=== PATIENT | female | born 1965 | race Caucasian/White ===

== ENCOUNTER → 2018-09-30 | Outpatient (CLI) | payer BC, SELFPAY ==
--- NOTE | 2018-09-30 16:17 | BI_ITS ---
MAMMOGRAPHY - BILATERAL SCREENING REASON FOR EXAM: Female, 53 years old. Routine annual screening examination. PERTINENT HISTORY: Non-contributory. TECHNIQUE: Digital bilateral breast leelee (3D mammographic acquisition) in the CC and MLO projections. 2-D mediolateral oblique (MLO) and craniocaudad (CC) views of both breasts were obtained. CAD: Full Field Digital Mammography with Computer Added Detection was performed. COMPARISON: Comparison is made with prior study dated June 09, 2015 and May 14, 2011. FINDINGS: Breast Composition: The breasts are extremely dense, which lowers the sensitivity of mammography. Questionable 8.1 mm nodular density with mild degree of spiculation seen in the deep lateral aspect of the right breast on the craniocaudad view. Correlation with ultrasound is recommended. No other significant abnormalities are identified. BI/SCREEN MAMM (CAD) W/LEELEE BILAT IMPRESSION: Questionable 8.1 mm nodular density in the deep lateral aspect of the right breast as described. Correlation with ultrasound is recommended. ASSESSMENT CATEGORY: BIRADS Category 0: Incomplete. Need additional imaging evaluation. A letter regarding these results will be sent to the patient by the facility within 30 days. Approximately 10% of breast cancers are not detected by mammography. A normal mammogram should not delay biopsy of a clinically suspicious abnormality. [id number] Electronically Signed: Conrado Ragsdale, at 8:33 EDT , Service support ,
== END | disposition home or self-care (01) ==
PROVIDERS: Family Provider Family Medicine; PCP Family Medicine; Referring Provider Obstetrics & Gynecology; Visit Provider Obstetrics & Gynecology
DX: Z12.31 Encounter for screening mammogram for malignant neoplasm of breast (principal)
CPT/HCPCS: 77063; 77067

== ENCOUNTER → 2018-10-01 | Outpatient (CLI) | payer BC, SELFPAY ==
--- NOTE | 2018-10-01 12:47 | US_ITS ---
STUDY: ULTRASOUND BREAST - RIGHT REASON FOR EXAM: Female, 53 years old. Abnormal screening mammogram. TECHNIQUE: Axial and longitudinal images of the RIGHT breast were performed with a high resolution ultrasound transducer. COMPARISON: Comparison is made with prior mammogram dated September 30, 2018. FINDINGS: RIGHT Breast: The mammographic abnormality corresponds to a 9 mm x 8 mm x 7 mm irregular hypoechoic nodule at the 7:00 position of the breast at 5 cm from the nipple. A biopsy is recommended. US/Breast Limited Unilateral IMPRESSION: 9 mm x 8 mm x 7 mm irregular hypoechoic nodule at the 7:00 position the breast at 5 cm from the nipple. A biopsy is recommended. ASSESSMENT CATEGORY: BIRADS Category 4: Suspicious - Biopsy Should Be Considered. A letter regarding these results will be sent to the patient by the facility within 30 days. Electronically Signed: Conrado Ragsdale, at 14:31 EDT , Service support ,
== END | disposition home or self-care (01) ==
LOC: OPUS 12:45
PROVIDERS: Family Provider Family Medicine; PCP Family Medicine; Visit Provider Obstetrics & Gynecology
DX: N63.10 Unspecified lump in the right breast, unspecified quadrant (principal)
CPT/HCPCS: 76642

== ENCOUNTER → 2018-10-11 | Outpatient (CLI) | payer BC, SELFPAY ==
--- NOTE | 2018-10-11 | IMM_PTH ---
PATIENT: HILDA VILLAVICENCIO LOC: [facility] U#:[id number] AGE/SX: 53/F ROOM: RE10/11/[address]: Dr. Koby Michelle MD : 1965 BED: DIS: 10/11/2018 SPEC #: [id number] RECD: 10/14/18 14:02 STATUS: CHIDI REQ #: [id number] DALE: 10/11/18 00:[address]: Koby Michelle DEPT: IMMUNOHISTOCHEMISTRY RECD BY: Leela Miranda ENTERED: 10/14/18 14:04 SP TYPE: IMMUNO OTHR DR: Dr. Cedric Valencia MD Tissues: Right breast, NOS Procedures: CALPONIN-1 (add) CK5-6 (add) CK8 (add) E-CAD (add) HER2 ANJU (add) KI-67 (add) P53 (add) KS (add) IN SITU HYBRIDIZATION P40 (add) ER (initial) PHYSICIAN & [address] [address] SPECIMEN INFORMATION: Tissue Source: Right breast needle core biopsy Clinical Info: Abnormal mammogram, right breast Specimen Number: [id number] CPT code: 29144, 32464 x6, 32996 x3, 15273 X2 METHODOLOGY: Deparaffinized sections of prefer/formalin-fixed tissue or PAP/DQ stained slides are incubated with monoclonal/polyclonal antibodies/oligonucleotide probes. Localization is made via biotin free immunoperoxidase method. Appropriate controls are performed and reacted as expected. Results on target cell population are indicated in the following table: RESULTS: ANTIBODY / CLONE RESULT P53 (DO-7) positive, 10% dim Ki-67 (30-9) positive, low CK8 (24zghgT77) positive CK5-6 (D5 & 1684) negative Calponin-1 (BF825I) negative P40 (BC28) negative E-Cad (ECH-6) positive MORPHOMETRIC ANALYSIS ER (clone 6F11) >95%, strong intensity KS (clone 16/1E2) >95%, strong intnsity Her-2Neu (clone CB11) 1 - 2+ The prognostic test for HER2 is performed on formalin-fixed paraffin embedded tissue. A 3+ (positive) staining pattern is defined as intense, homogeneous, complete, circumferential membranous staining in >10% of contiguous tumor cells. A similar weak (2+) staining pattern is interpreted as equivocal. JAROD follow-up testing is recommended for all equivocal cases. Positivity/negativity for ER/KS is reported if > or < 1% of the tumor cells are immuno- reactive, respectively. The ASCO/CAP criteria is used for scoring. Reference: Journal of Clinical Oncology, 2013; 31:0451-1952 & 2010; 16:5297-5945. Duration of fixation: 58.5 Hrs; Sample Adequate: Yes. These assays have not been validated on decalcified tissues. Results should be interpreted with caution given the likelihood of false negativity on decalcified specimens. These tests were developed and their performance characteristics determined by [facility]. They may not have been cleared or approved by the U.S. Food and Drug Administration. The FDA has determined that such clearance or approval is not necessary. INTERPRETATION: Right breast, core biopsy; Invasive ductal carcinoma, nuclear grade 2 Positive for estrogen receptors (favorable prognostic indicator). Positive for progesterone receptors (favorable prognostic indicator). Equivocal for overexpression of IAL6ptq. AM/cc 10/15/18 ADDENDUM ADDENDUM ADDENDUM ADDENDUM ADDENDUM ADDENDUM ADDENDUM ADDENDUM ADDENDUM ADDENDUM ADDENDUM ADDENDUM ADDENDUM ADDENDUM ADDENDUM ADDENDUM ADDENDUM ADDENDUM ADDENDUM ADDENDUM ADDENDUM 10/16/2018 12:25 ADDENDUM 10/16/2018 12:25 ADDENDUM 10/16/2018 12:25 ADDENDUM 10/16/2018 12:25 ADDENDUM 10/16/2018 12:25 IN SITU HYBRIDIZATION (JAROD) FOR HER2 Interpretation: Not Amplified HER2 : CEP-17 Ratio: 1.31 Average HER2 Signal: 2.3 Average CEP-17 Signal: 1.75 Number of Tumor Cells Scanned: 50 Interpretative Information: The INFORM HER2 Dual JAROD DNA Probe Cocktail assay is performed on formalin-fixed paraffin embedded tissue and determines HER2 gene status by detecting HER2 copies via silver in situ hybridization (SISH) and Chromosome 17 copies via chromogenic red in situ hybridization on tumor cells. A minimum of 20 cells representing > 10% of contiguous and homogeneous invasive tumor cells were analyzed. HER2 gene status is classified as Non-amplified (HER2/Chr17 ratio < 2.0) or Amplified (HER2/Chr17 ratio greater than or equal to 2.0). If the resulting HER2/Chr17 ratio falls within 1.8 - 2.2 (Borderline), retesting by FISH is recommended. Reference: Amy AC, Aaron STEVEN, Trell DG, et al: Recommendations for Human Epidermal Growth Factor Receptor 2 Testing in Breast Cancer: [place] [employer] On[employer] / [employer] [place] [employer] Clinical Practice Guideline Update. J Clin Oncol 31:0557-2133, 2013.
--- NOTE | 2018-10-11 09:15 | BRBX_PTH ---
PATIENT: HILDA VILLAVICENCIO LOC: [facility] #:[id number] AGE/SX: 53/F ROOM: RE10/11/[address]: Dr. Koby Michelle MD : 1965 BED: DIS: 10/11/2018 SPEC #: [id number] RECD: 10/11/18 11:12 STATUS: CHIDI REBethany #: [id number] DALE: 10/11/18 09:[address]: Koby Michelle DEPT: SURGICAL PATHOLOGY RECD BY: Travis Quinones ENTERED: 10/13/18 09:36 SP TYPE: BREAST BX OTHR DR: Dr. Cedric Valencia MD Tissues: Right breast, NOS Procedures: Surgery Specimen Level IV HEADER OPERATION: Ultrasound-guided needle core right breast biopsy PRE-OP DIAGNOSIS: Abnormal mammogram right breast TISSUE SUBMITTED: Right breast needle core biopsy ISCHEMIC TIME: <1 minute FIXATION TIME: 58.5 hours MICROSCOPIC DIAGNOSIS Right breast, ultrasound, needle core biopsy: Invasive ductal carcinoma with the following characteristics: Nuclear grade - 2. Maximal length - 7 mm. AM:taina 10/14/2018 COMMENT ER/NH/Uuq3gko studies are being performed on sections of tumor and the results from this study will be reported separately ([id number]). MICROSCOPIC DESCRIPTION Slides are reviewed. GROSS DESCRIPTION Received in fixative is one container labeled with the patient's name and designated right breast biopsy. The specimen consists of two elongated fragments of wagner soft tissue measuring 0.7 and 1 cm in length and 0.1 cm in diameter. The entire specimen is submitted in one cassette. / SJ:jose enrique 10/13/18 TC: 0 CPT: 07931
[2018-10-11 10:08] VITALS: BMI 19.1
== END | disposition home or self-care (01) ==
LOC: LABSPEC 11:33
PROVIDERS: Family Provider Family Medicine; PCP Family Medicine; Referring Provider Surgery; Visit Provider Surgery
DX: C50.911 Malignant neoplasm of unspecified site of right female breast (principal)
CPT/HCPCS: 88305; 88341; 88342; 88368

== ENCOUNTER 2018-10-24 13:59 | Observation (INO) | payer BC, SELFPAY ==
[2018-10-20 15:37] VITALS: BMI 19.1
--- NOTE | 2018-10-23 14:07 | EKG12_ITS ---
Test Reason : PREOP Blood Pressure : / mmHG Vent. Rate : 073 BPM Atrial Rate : 073 BPM P-R Int : 128 ms QRS Dur : 090 ms QT Int : 386 ms P-R-T Axes : 081 084 071 degrees QTc Int : 425 ms Normal sinus rhythm Possible Left atrial enlargement Borderline ECG Confirmed by SAMANTHA LANDA ([id number]), editor farm journal GREGORY GUERRA ([id number]) on 10/27/2018 1:35:00 PM Referred By: Samantha Michelle Confirmed By:SAMANTHA LANDA
[2018-10-23 15:17] LABS: Hematocrit 38.6 % (37-47); Mean Corp Hgb Conc 33.7 g/dL (32-36); Mean Corpuscular Hgb 32.3 pg (27.0-32.0); Mean Corpuscular Volume 95.8 fL (81-99); Mean Platelet Vol. 10.4 fl (6.2-12.0); Platelet Count 221 K/mm3 (150-450); RBC Distribution Width CV 12.3 % (11.6-14.6); RBC Distribution Width SD 43.5 fl (35.1-43.9); Red Blood Count 4.03 M/mm3 (4.2-5.4); White Blood Count 7.6 K/mm3 (4.4-11.0)
--- NOTE | 2018-10-23 19:09 | PCM.HP.BLA ---
History and Physical Date of Admission: 10/24/18 HISTORY OF PRESENT ILLNESS 53 year old woman presents for evaluation for breast reconstruction after a recent diagnosis of right breast cancer from a biopsy on 10/11/18. Pathology showed invasive ductal carcinoma. ER was positive. MD was positive. HER2/gurpreet was equivocal for overexpression. Her initial mammogram and ultrasound were done on 09/30/18 and suspicious for carcinoma. She denies any trauma to the breasts. She denies nipple drainage. She denies any skin dimpling or skin retraction. Since her diagnosis of right breast cancer, the patient is concerned that she will get cancer in the left breast and has developed cancer phobia. She also wants to discuss a prophylactic mastectomy on the left. PAST MEDICAL HISTORY Abnormal ultrasound of breast Abnormal mammogram Breast cancer PAST SURGICAL HISTORY right breast biopsy hysterectomy ALLERGIES tetracycline METALS MEDICATIONS NK FAMILY HISTORY Father - Heart disease, Myocardial infarction Mother - Respiratory disease Aunt - Respiratory disease SOCIAL HISTORY Smoking Status: Former smoker Smokeless tobacco user: other Electronic Cigarette Use: with nicotine second hand exposure: No quit status: quit date established alcohol intake: current alcohol intake frequency: a few times a month substance use type: does not use REVIEW OF SYSTEMS General - Denies fever, fatigue, and weight loss. Eyes - Denies cataracts and glaucoma. ENT - Denies nasal congestion and sore throat. Endocrine - Denies excessive thirst and urination. Has heat and cold intolerance. Has diagnosis of right breast cancer from biopsy on 10/11/18. Skin - Denies suspicious lesions and skin cancer. Musculoskeletal - Denies joint pain, joint stiffness, weakness of muscles and joints, back pain, and arthritis. Neuro - Denies headaches. Cardiovascular - Denies chest pain, fatigue, and shortness of breath with exertion. Psych - Denies anxiety and depression. Respiratory - Denies chronic cough and shortness of breath. Patient is a former smoker. Gastrointestinal - Denies nausea, vomiting, diarrhea, and constipation. Hematologic - Denies abnormal bruising and bleeding. Genitourinary - Denies hematuria and urinary frequency. PHYSICAL EXAMINATION General - Alert and Oriented. Her bra size is a B cup. HEENT - PERRL. EOMI. Throat is clear. Neck - Supple and nontender. No cervical adenopathy. Breasts - soft and symmetrical. No ptosis noted as the nipple is located just above the inframammary fold. Breast width is 13 cm bilaterally. No breast masses palpable. The breast cancer is located on the lower outer quadrant right breast. Some residual bruising noted after the biopsy. No axillary adenopathy. Lungs - Clear to auscultation. Heart - Regular rate and rhythm. Abdomen - Soft and nondistended. Some redundant skin and subcutaneous tissue noted between the umbilicus and pubic area. Extremities - FROM. No axillary adenopathy. Radial pulses are palpable. Neuro - CN II-XII grossly intact. Psych - Normal mood and affect. ASSESSMENT 1. Right breast cancer. 2. Cancer phobia left breast. 3. Planned acquired absence bilateral breasts. 4. Planned disproportion reconstructed breasts. 5. Estrogen receptor status positive. 6. Former smoker. PLAN Discussed various breast reconstruction options with the patient. These range from expanders and implants to using autogenous tissue to a combination of the two. She was told she may not need chemotherapy after surgery. She is leaning toward expanders and implants since the recovery is quicker. She wants to avoid additional scars elsewhere on the body. She would like to return to work in a timely fashion. Using autogenous tissue is a longer operation with more days in the hospital and has a longer recovery period. Initially, we can place saline tissue expanders into the mastectomy wounds. The expanders would be placed under the muscle and combined with placement of acellular dermal matrix graft for complete coverage of the expanders. Another option with implants is to place them on top of the muscle and then provide complete coverage of the implants with acellular dermal matrix graft. That way, the patient can wake up from surgery with a breast shape. It has a little more risk because of the tension of the implants on the fresh mastectomy skin flaps. But psychologically can be very beneficial so the benefits can outweigh the risks. Unless the patient is really interested in the pre-pectoral placement of the implants, it would be safer to proceed with initial placement of saline tissue expanders. Patient wants to minimize healing problems and minimize extra surgeries if possible, so she wants to proceed with the saline tissue expanders. She understands that she will wake up with out a breast shape since the expanders are not inflated initially, and she states she is ok with that initially because she knows it won't last very long until the expanders are removed with replacement cohesive gel implants. Because she has no ptosis preoperatively, will proceed with a skin sparing mastectomy. Will probable use a vertical incision which can be used as a mastopexy type incision at the time of the replacement cohesive gel implants. Any extra skin can be excised horizontally in the breast crease to complete the Tzone mastopexy incision. After the breast mounds have been created, can then discuss nipple reconstruction at that time which involves creation of a nipple flap and skin grafting the areola and/or intradermal tattooing. With this recent diagnosis of right breast cancer, the patient expressed concerns about developing breast cancer on the left at some point in the future and is interested in a prophylactic mastectomy to help minimize those fears. A prophylactic mastectomy on the left at the time of the right mastectomy and sentinel lymph node biopsy is a reasonable request. Can then proceed with bilateral reconstruction. Surgery would be under general anesthesia with a surgical observation overnight stay in the hospital. She will have drains in for several days and be maintained on antibiotics until the drains are removed. She will also wear an HECTOR for chest wall compression to minimize seroma formation. Will coordinate with Dr. Michelle's office for the timing of the surgery. Will try for the next 1-2 weeks. Patient was informed of the risks and complications of the procedure including alternatives to surgery. These were discussed with the patient personally. Patient voices understanding and wishes to proceed. Some of the risks and complications were included in a form from the [place] [employer].
[2018-10-24] VITALS (9 sets, daily range): BP systolic 93–111; BP diastolic 40–55; PULSE 57–87; RESP 14–70; TEMP 36.3–37.8; O2SAT 91–100; BMI 18.8
--- NOTE | 2018-10-24 | IMM_PTH ---
PATIENT: HILDA VILLAVICENCIO LOC: MS[facility] U#:[id number] AGE/SX: 53/F ROOM: IL302 RE10/24/[address]: Dr. Koby Michelle MD : 1965 BED: 1 DIS: 10/26/2018 SPEC #: [id number] RECD: 10/29/18 13:02 STATUS: CHIDI REQ #: [id number] DALE: 10/24/18 00:[address]: Koby Michelle DEPT: IMMUNOHISTOCHEMISTRY RECD BY: More Biggs ENTERED: 10/29/18 13:03 SP TYPE: IMMUNO OTHR DR: Dr. Cedric Valencia MD Tissues: A - Axillary lymph node, NOS Procedures: Pankeratin (add) CK7 (initial) PHYSICIAN & INSTITUTION [place] [address] SPECIMEN INFORMATION: Tissue Source: A - Right axillary sentinel lymph nodes, biopsy Clinical Info: Right breast cancer, ER positive Specimen Number: [id number] CPT code: 68881, 68632 METHODOLOGY: Deparaffinized sections of prefer/formalin-fixed tissue or PAP/DQ stained slides are incubated with monoclonal/polyclonal antibodies/oligonucleotide probes. Localization is made via biotin free immunoperoxidase method. Appropriate controls are performed and reacted as expected. Results on target cell population are indicated in the following table: RESULTS: ANTIBODY / CLONE RESULT Block A CK7 (OV-TL12/30) negative AE1-3 (AE1/AE3/PCK26) negative These tests were developed and their performance characteristics determined by [facility]. They may not have been cleared or approved by the U.S. Food and Drug Administration. The FDA has determined that such clearance or approval is not necessary. INTERPRETATION: A. Right axillary sentinel lymph nodes, biopsy: Two out of two lymph nodes negative for carcinoma. AM:jose enrique 10/30/18
--- NOTE | 2018-10-24 | AXNB_PTH ---
PATIENT: HILDA VILLAVICENCIO LOC: MS3 U#:[id number] AGE/SX: 53/F ROOM: [facility] RE10/24/[address]: Dr. Koby Michelle MD : 1965 BED: 1 DIS: 10/26/2018 SPEC #: [id number] RECD: 10/24/18 11:01 STATUS: CHIDI REQ #: [id number] DALE: 10/24/18 00:[address]: Koby Michelle DEPT: SURGICAL PATHOLOGY RECD BY: More Biggs ENTERED: 10/24/18 11:50 SP TYPE: AX NODE BX OTHR DR: Dr. Cedric Valencia MD Tissues: A - Axillary lymph node, NOS B - Skin, NOS C - Right breast, NOS D - Left breast, NOS Procedures: Frozen Section (charge) Surgery Specimen Level III Surgery Specimen Level V Surgery Specimen Level HEADER OPERATION: Breast mastectomy, sentinel lymph node biopsy PRE-OP DIAGNOSIS: Right breast cancer, ER positive TISSUE SUBMITTED: A - [place] lymph node sent for frozen at 1055, B - Skin biopsy right breast, C - Right breast, D - Left breast FROZEN SECTION DIAGNOSIS A. Right axillary sentinel lymph nodes, biopsy: Two out of two lymph nodes, negative for carcinoma. AM: 10/24/18 MICROSCOPIC DIAGNOSIS A. Right axillary sentinel lymph nodes, biopsy: Two out of two lymph nodes, negative for carcinoma. B. Skin of right breast, biopsy: No pathologic diagnosis. C. Right breast, mastectomy: Invasive ductal carcinoma. See cancer checklist below. D. Left breast, mastectomy: Fibrocystic change with associated microcalcifications. Focal intraductal hyperplasia without atypia. Microscopic intraductal papilloma. No evidence of malignancy. AM: 10/30/18 COMMENT INVASIVE BREAST CANCER SUMMARY: (Specimen C) Specimen: Total breast Procedure: Mastectomy Specimen integrity: Single intact specimen. Specimen size: 14 x 13 x 2.5 cm Specimen laterality: Right breast Invasive tumor size: 1 x 1 x 0.6 cm (from glass slides) Tumor focality: Single focus of invasive carcinoma Macroscopic and Microscopic extent of tumor: Skin: Free of carcinoma Nipple: Free of carcinoma Skeletal muscle: Not present Histologic type of invasive carcinoma: Invasive ductal carcinoma Histologic Grade ([place] grade): Glandular/tubular differentiation score: 3 Nuclear pleomorphism score: 2 Mitotic count score: 2 Overall grade: Grade 2 (total score of 7) Margins: Uninvolved by invasive carcinoma. Distance from closest (superior margin) is 0.7 cm. Lymph-Vascular invasion: Not identified Dermal lymph-vascular invasion: Not identified Ductal carcinoma in situ (DCIS): Estimated size (extent) of DCIS: 2 x 1 x 1 mm Number of blocks with DCIS: 4 Number of blocks examined: 12 Architectural pattern: Cribriform Nuclear grade: grade 2 Necrosis: Not present Lobular carcinoma in situ (LCIS): not present Lymph nodes: See specimen A Number of sentinel lymph nodes examined: 2 Total number of lymph nodes examined (sentinel and nonsentinel): 2 No evidence of macrometastases, micrometastases or isolated tumor cells. Microcalcifications: Present focally in benign breast parenchyma. Treatment effect: Unknown Additional pathologic findings: Fibrocystic change, microfibroadenoma and focal intraductal hyperplasia without atypia. Ancillary studies: Previously performed on same tumor ([id number] / [id number]). ER: >95% with strong intensity CO: >95% with strong intensity Her2 gurpreet: 1-2+ (IHC) Her2 by dual JAROD: Not amplified (1.31) PATHOLOGIC STAGE: pT1b N0(sn) Mx The above summary is in compliance with [employer] [place] [employer] (CAP) Cancer Protocols Checklist and [place] Joint Committee on Cancer (AJCC), Staging Manual, 8th Ed. Case has been reviewed in consultation with Dr. Fox who concurs with the above diagnosis. IDC:[id number] MICROSCOPIC DESCRIPTION Slides are reviewed. GROSS DESCRIPTION A - Received fresh for frozen section consultation labeled with the patient's name is a specimen designated right sentinel lymph node. The specimen consists of one irregular fragment of wagner-yellow fibrofatty tissue measuring 3.5 x 3.5 x 1 cm. Dissection reveals two rubbery nodules ranging in size from 1 to 1.5 cm. The nodules are submitted in their entirety for frozen section consultation in one block. / AM: 10/27/18 B - Received in fixative is one container labeled with the patient's name and designated skin biopsy right breast. The specimen consists of a single irregular fragment of wagner skin with attached yellow tissue measuring 0.7 x 0.5 x 0.2 cm. The specimen is totally submitted in one cassette. / AM: 10/27/18 C - Received in fixative is one container labeled with the patient's name and designated right breast. The specimen consists of a mastectomy measuring 14 x 13 x 2.5 cm and a skin fragment containing a centrally located nipple and areola measuring 7 x 2.6 cm. No cutaneous mass lesions are identified. The?specimen weighs 211 gm. The specimen is differentially inked as follows: superior - blue, inferior??green and posterior - black. Serial sections located in the upper outer quadrant of the breast is?a firm, wagner-white lesion that is spiculated and measures 1 x 0.9 x 0.8 cm and is located 0.5 cm from its?closest (superior) margin of excision. The remainder of the breast parenchyma is dense, white and firm in appearance. No other mass lesions are identified. Financial Advocate sections are submitted in 12?cassettes as follows: 1 & 2 - nipple and areola, 3 - perpendicular superior and inferior margins, 4??perpendicular medial margin, 5 - perpendicular lateral margin, 6 - perpendicular posterior margin, 8?&?9 - tumor, totally submitted, 10 - uninvolved parenchyma adjacent to tumor, 11 & 12 - uninvolved parenchyma away from tumor. Note, sections are submitted after additional fixation. / AM: 10/27/18 D - Received in fixative is one container labeled with the patient's name and designated left breast. The specimen consists of a mastectomy measuring 14 x 11.5 x 3 cm. The anterior surface contains a centrally located fragment of skin containing a grossly unremarkable nipple and areola. The skin fragment measures 6.5 x 2.5 cm. No cutaneous lesions are identified. The specimen is differentially inked as follows: superior - blue, inferior??green and posterior - black. The specimen weighs 220 gm. Serial sections reveal homogenous white, dense cut surfaces. No distinct mass lesion is identified. Financial Advocate sections are submitted as follows: 1 - nipple and areola, 2 - perpendicular superior and inferior margins, 3??perpendicular medial margin, 4 - perpendicular lateral margin, 5 - perpendicular posterior margin, 6-10 - textile machinery sales representative sections of breast parenchyma. Note, sections are submitted after additional fixation. / AM:jose enrique 10/27/18 TC:0 CPT: 24872 x2, 20869, 80401, 58502 ADDENDUM ADDENDUM ADDENDUM ADDENDUM ADDENDUM ADDENDUM ADDENDUM ADDENDUM 11/21/2018 10:14 ADDENDUM 11/21/2018 10:14 ADDENDUM 11/21/2018 10:14 ADDENDUM 11/21/2018 10:14 ADDENDUM 11/21/2018 10:14 An order for Oncotype testing was received from Dr. Gr. This necessitated case review, block and slide selection by pathologist at [facility]. Breast Cancer Recurrence Score = 10 Results of the complete Oncotype testing ([employer] report) are viewable in EMR under: Reports - Pathology - Lab Pathology Report, Scanned.
--- NOTE | 2018-10-24 08:00 | NM_ITS ---
PROCEDURE: NUCLEAR MEDICINE Injection [place] Node - RIGHT breast(s). REASON FOR EXAM: Female, 53 years old. Right breast cancer. TECHNIQUE: [place] node localization using radionuclide methods of the RIGHT breast(s) was performed following subcutaneous administration of 1.1 mCi of of sulfur colloid Tc-99m. FINDINGS: 1.1 mCi of technetium labeled sulfur colloid was injected in 4 equal aliquots in the lower outer aspect of the right breast. NM/Lymph Node Injection Only IMPRESSION: Subcutaneous injection of 1.1 mCi of technetium labeled sulfur colloid for sentinel node imaging. Electronically Signed: Conrado Ragsdale, at 8:17 EDT , Service support ,
[2018-10-24] MEDS: Cefazolin 2 GM in 0.9% Normal Saline 100 ML IV (09:49)
[2018-10-24] MEDS: Isosulfan Blue 1% 5 ML Vial OPERA.SITE (10:10)
--- NOTE | 2018-10-24 13:47 | PCM.OPRPT ---
Report of Operation Date of Procedure: 10/24/18 Pre-Operative Diagnosis: 1. Right breast cancer. 2. Cancer phobia left breast. 3. Planned acquired absence bilateral breasts. 4. Planned disproportion reconstructed breasts. 5. Estrogen receptor status positive. 6. Former smoker. Post-Operative Diagnosis: Same. Surgery/Procedure Performed:: 1. Prophylactic mastectomy left breast. 2. Immediate bilateral breast reconstruction with placement of submuscular saline tissue expanders (350 ml) and placement Alloderm Select Regenerative Tissue Matrix Graft (132 cm2 for each side). Description of Surgical Findings:: 53 year old woman presents for evaluation for breast reconstruction after a recent diagnosis of right breast cancer from a biopsy on 10/11/18. Pathology showed invasive ductal carcinoma. ER was positive. VT was positive. HER2/gurpreet was equivocal for overexpression. Her initial mammogram and ultrasound were done on 09/30/18 and suspicious for carcinoma. She denies any trauma to the breasts. She denies nipple drainage. She denies any skin dimpling or skin retraction. Since her diagnosis of right breast cancer, the patient is concerned that she will get cancer in the left breast and has developed cancer phobia. She also wants to discuss a prophylactic mastectomy on the left. Patient was informed of the risks and complications of the procedure including alternatives to surgery. These were discussed with the patient personally. Patient voices understanding and wishes to proceed. Some of the risks and complications were included in a form from the [place] [employer]. IV Fluids - 1700 ml. Urine Output - 200 ml. I used [employer] Artoura with Suture Tabs, Ultra High Profile Breast Tissue Cq Developer, Smooth, Integral Injection Dome, 350 ml, Left Breast. Reference Number - [id number]. Lot Number - [id number]. Serial Number - [id number]. I used [employer] Artoura with Suture Tabs, Ultra High Profile Breast Tissue Cq Developer, Smooth, Integral Injection Dome, 350 ml, Right Breast. Reference Number - [id number]. Lot Number - [id number]. Serial Number - [id number]. I used Alloderm Select Regenerative Tissue Matrix Graft, Contour Medium Perforated Thick (2.4 mm), 132 cm2, Left Breast. Reference Number - [id number] Lot Number - [id number]. Expiration - August,. I used Alloderm Select Regenerative Tissue Matrix Graft, Contour Medium Perforated Thick (2.4 mm), 132 cm2, Right Breast. Reference Number - [id number]. Lot Number - [id number]. Expiration - August,. I used Surgicel absorbable hemostat, (I used 2 vials, one in each breast). Reference Number - [id number]. Lot Number - [id number]. Expiration - February 15, 2020. web services professional: Eran Alvarez. Type of Anesthesia:: General Specimen's removed: Left breast tissue to Pathology. Drains: Cameron x3 (2 in right breast and one in left breast). Estimated Blood Loss (mL): 150 ml. Fluids Replaced: 1900 ml (IV Fluids 1700 ml, Urine Output 200 ml). Description of Procedure: Patient was seen in the preop area and was placed in the sitting position. Preop markings were made. I marked the sternal midline down toward the umbilicus. The inframammary folds were marked bilaterally. I andrzej oval markings around the nipple areolar complex extending vertically toward the inframammary fold. Will proceed with a vertical mastopexy type incision for the mastectomy which will be a better camouflage scar at the time of the replacement cohesive gel implants. She was placed in supine position and taken to OR and placed under general anesthesia. Her breasts were prepped and draped in the usual fashion. SCD's were placed for DVT prophylaxis. Perioperative antibiotics were given intravenously. A bradford catheter was then placed. Dr. Michelle proceeded with the right mastectomy. He will make a separate incision laterally to excise the biopsy site. Separate teams were used and separate instruments were used to avoid contaminating the noncancerous right side with possible cancer cells. I then proceeded with the prophylactic mastectomy on the left side. The vertical markings were infiltrated with xylocaine and epinephrine. I dissected the breast tissue off the breast skin flaps at the level of Jaida's fascia down to the chest wall muscular fascia. The breast tissue was then dissected off the chest wall muscular fascia. Dissection was carried superiorly to the clavicle and medially to the sternum and laterally to the anterior axillary line and inferiorly to the inframammary fold. The tissue was then sent to Pathology for analysis to rule out carcinoma. Hemostasis was obtained with electrocautery. The wound was irrigated with Irrisept and then with saline. I temporarily closed the incision with surgical clips. I will proceed with the placement of saline tissue expanders bilaterally after Dr. Michelle is finished with the sentinel lymph node biopsy. The preliminary Pathology report was negative for carcinoma in the lymph node. Sterile towels were placed over the mastectomy incisions as the drapes were removed. Then the sterile towels were removed as the patient was reprepped and redraped in the usual fashion. I first started on the left breast and then continued on the right breast. Incision was made at the level of the inferior aspect of the pectoralis muscle. A submuscular pocket was created. Some of the inferior and medial muscular fibers were excised to allow a larger submuscular pocket and to allow ease in insetting the Alloderm Regenerative Tissue Matrix Graft over the numerical control programmer. The wound was irrigated with saline. Hemostasis was obtained with electrocautery. A size 15 Cameron drain was placed through a separate stab incision laterally and secured to the skin with 3-0 Nylon interrupted suture. Based on the size of the submuscular pocket, I determined a size 350 ml saline tissue numerical control programmer from [employer] would be used. I used [employer] Artoura Ultra High Profile Smooth Breast Tissue Cq Developer. I removed the air from the numerical control programmer. After I removed the air, I instilled 50 ml of saline and tested to see if there were any leaks in the numerical control programmer. When it was noted there were no leaks, the saline was removed. The numerical control programmer was placed in Betadine and then placed in the submuscular position. The numerical control programmer was secured to the chest wall with 3-0 Vicryl interrupted sutures through the suture tabs. I then covered the inferior aspect of the numerical control programmer with Alloderm Regenerative Tissue Matrix Graft and secured the graft to the muscle with 3-0 Vicryl interrupted sutures and from the graft to the chest wall with 3-0 Vicryl interrupted sutures. I then sprayed Surgicel absorbable hemostat into the left breast wound pocket to help with hemostasis and to minimize seroma formation postoperatively. I used one vial. The horizontal breast incision was then approximated in multiple layers with 3-0 Monocryl interrupted sutures for the deep subcutaneous tissue. 3-0 Monocryl interrupted sutures were used for the deep dermis and subcutaneous tissue. The skin was approximated with 3-0 V-lock unidirectional barbed running subcuticular suture followed by Histoacryl skin tissue adhesive. Once the left side was closed, I then proceeded with the right breast reconstruction. Incision was made at the level of the inferior aspect of the pectoralis muscle. A submuscular pocket was created. Some of the inferior and medial muscular fibers were excised to allow a larger submuscular pocket and to allow ease in insetting the Alloderm Regenerative Tissue Matrix Graft over the numerical control programmer. The wound was irrigated with saline. Hemostasis was obtained with electrocautery. Two size 15 Cameron drains were placed through separate stab incisions laterally and secured to the skin with 3-0 Nylon interrupted sutures. One of the stab incisions was the biopsy site. Based on the size of the submuscular pocket, I determined a size 350 ml saline tissue numerical control programmer from [employer] would be used. I used [employer] Artoura Ultra High Profile Smooth Breast Tissue Cq Developer. I removed the air from the numerical control programmer. After I removed the air, I instilled 50 ml of saline and tested to see if there were any leaks in the numerical control programmer. When it was noted there were no leaks, the saline was removed. The numerical control programmer was placed in Betadine and then placed in the submuscular position. The wound was irrigated with Irrisept and then with saline. The numerical control programmer was secured to the chest wall with 3-0 Vicryl interrupted sutures through the suture tabs. I then covered the inferior aspect of the numerical control programmer with Alloderm Regenerative Tissue Matrix Graft and secured the graft to the muscle with 3-0 Vicryl interrupted sutures and from the graft to the chest wall with 3-0 Vicryl interrupted sutures. I then sprayed Surgicel absorbable hemostat into the left breast wound pocket to help with hemostasis and to minimize seroma formation postoperatively. I used one vial. The horizontal breast incision was then approximated in multiple layers with 3-0 Monocryl interrupted sutures for the deep subcutaneous tissue. 3-0 Monocryl interrupted sutures were used for the deep dermis and subcutaneous tissue. The skin was approximated with 3-0 V-lock unidirectional barbed running subcuticular suture followed by Histoacryl skin tissue adhesive. No vascular compromise was noted on both breast area skin flaps. Kerlix gauze was used for dressing followed by a compression HECTOR wrap. Patient tolerated the procedure well and was sent to PACU in satisfactory condition. She will be sent upstairs for postop care. She will be discharged when tolerating po analgesia and when she is more steady on her feet with ambulation. I anticipate 2-3 days. She will have her drains in for up to 14 days. She will be maintained on antibiotics until the drains are removed. She will keep her head elevated during the initial postop period and be on a lifting restriction. Grafts/Implants Used: [employer]william Artoura saline tissue numerical control programmer x2, Alloderm RTM graft x2. - Complications None. - Admit VTE Documentation VTE Present on Admission: No VTE Mechan Device Prophylaxis: SCD's VTE Pharm Prophylaxis ordered?: Yes Code Visit Surgery Charges CPT - 55023 ICD-10 - C50.911, F40.298, Z90.13, N65.1, Z17.0, Z87.891 26584 C50.911, F40.298, Z90.13, N65.1, Z17.0, Z87.891 [id number] C50.911, F40.298, Z90.13, N65.1, Z17.0, Z87.891 25626 C50.911, F40.298, Z90.13, N65.1, Z17.0, Z87.891 [id number] C50.911, F40.298, Z90.13, N65.1, Z17.0, Z87.891
[2018-10-24] MEDS: Ondansetron 4 MG/2 ML Vial IV (15:59)
[2018-10-24] MEDS: Cefazolin 1 GM/50 ML BAG IV ×2 (16:48→21:23)
[2018-10-24] MEDS: oxyCODONE 5 MG Tablet 10 MG PO ×2 (16:53→21:23)
[2018-10-24] MEDS: proMETHazine 25 MG Tablet PO (17:43)
[2018-10-24] MEDS: Docusate Sodium 100 MG Capsule PO (21:26)
[2018-10-25] MEDS: 0.9% NaCl Peripheral Flush Adult/Peds IV (00:35)
[2018-10-25] MEDS: HYDROmorphone 1 MG/ML Syringe IV (00:35)
[2018-10-25 00:37] VITALS: BP 105/55; PULSE 73; RESP 16; TEMP 36.9; O2SAT 97
[2018-10-25] MEDS: Lactated Ringers 1,000 ML 60 ML IV ×2 (05:52→22:40)
[2018-10-25] MEDS: oxyCODONE 5 MG Tablet 10 MG PO ×4 (05:52→19:55)
[2018-10-25] MEDS: Cefazolin 1 GM/50 ML BAG IV ×3 (05:53→22:40)
[2018-10-25 06:02] VITALS: BP 88/47; PULSE 77; RESP 18; TEMP 36.9; O2SAT 97
[2018-10-25 06:41] LABS: Hematocrit 32.2 % (37-47); Hemoglobin 10.5 g/dL (12.0-15.0); Mean Corp Hgb Conc 32.6 g/dL (32-36); Mean Corpuscular Hgb 32.4 pg (27.0-32.0); Mean Corpuscular Volume 99.4 fL (81-99); Platelet Count 183 K/mm3 (150-450); RBC Distribution Width CV 12.2 % (11.6-14.6); RBC Distribution Width SD 45.1 fl (35.1-43.9); Red Blood Count 3.24 M/mm3 (4.2-5.4); White Blood Count 10.1 K/mm3 (4.4-11.0)
[2018-10-25 07:01] LABS: Anion Gap 5 (5-15); BUN 6 mg/dL (7-18); BUN/Creat Ratio 7.5 RATIO (10-20); Calcium,Total 7.9 mg/dL (8.5-10.1); Chloride 107 mmol/L (98-107); EST Glomerular Filtration Rate 80 mL/min (>60); Est Glom Filt Rate - Afr Amer 97 mL/min (>60); Estimated Creatinine Clearance 64.22 ml/min; Glucose 124 mg/dL (74-106); Potassium 3.9 mmol/L (3.5-5.1); Prealbumin 14.2 mg/dL (20.0-40.0); Sodium Level 141 mmol/L (136-145)
[2018-10-25 07:07] VITALS: BP 91/34; PULSE 80; RESP 18; TEMP 36.8; O2SAT 97
[2018-10-25] MEDS: Enoxaparin 40 MG/0.4 ML Syringe SC (07:11)
[2018-10-25] MEDS: Docusate Sodium 100 MG Capsule PO ×2 (08:51→22:39)
--- NOTE | 2018-10-25 09:37 | PCM.OPRPT ---
Problem List (1) Breast cancer, right Status: Acute Qualifiers: Breast location: lower outer quadrant of breast Estrogen receptor status: positive Patient sex: female Qualified Code(s): C50.511 - Malignant neoplasm of lower-outer quadrant of right female breast; Z17.0 - Estrogen receptor positive status [ER+] Report of Operation Date of Procedure: 10/24/18 Pre-Operative Diagnosis: Right-sided breast cancer Post-Operative Diagnosis: Same Surgery/Procedure Performed:: 1. Injection of 5 cc of Lymphazurin blue. 2. Right-sided mastectomy. 3. Right-sided sentinel lymph node biopsy Type of Anesthesia:: General Specimen's removed: 1. Right breast. 2. [place] lymph node biopsies Description of Procedure: She was brought into the operating room. Placed in the supine position. Under excellent general trach intubation I injected 4 cc of Lymphazurin blue circumareolar Tavares on the right nipple area. Both breasts were then sterilely prepped and draped in usual fashion. An inverse teardrop incision was made on the breast. Flaps were created with the use of a plasma blade I started medially towards the sternum and inferiorly towards the rectus abdominis muscle and then went superiorly I rotated the breast off of the pectoralis major muscle using the plasma blade I had excellent hemostasis I transected the breast just lateral to the lateral edge of the pectoralis minor muscle for permanent sectioning. I entered the clavipectoral fascia and identified a blue lymph node it did have a super high count on the neoprobe I removed it I sent it came back as to lymph node. No other blue lymph nodes were identified. Neoprobe activity was minimal. The sentinel lymph nodes came back his 2 benign lymph nodes with no signs of metastatic disease. Irrigated out the wound good hemostasis was noted. Once this was completed I turned my attention to the previous biopsy site. I ellipsed this out and sent it to pathology for permanent sectioning Dr. Lewis will be dictating the rest of the closure. - Admit VTE Documentation VTE Present on Admission: No VTE Mechan Device Prophylaxis: SCD's VTE Pharm Prophylaxis ordered?: No Reason prophylaxis not ordered:: Treatment Not Indicated
--- NOTE | 2018-10-25 09:48 | HP.PCM_ITS ---
Problem List (1) Breast cancer, right Status: Acute Qualifiers: Breast location: lower outer quadrant of breast Estrogen receptor status: positive Patient sex: female Qualified Code(s): C50.511 - Malignant neoplasm of lower-outer quadrant of right female breast; Z17.0 - Estrogen receptor positive status [ER+] History and Physical Date of Admission: 10/24/18 [facility] [address] [place] [address]. [address] [place] [address] OFFICE VISIT Date of Service: 10/17/18 MR#: [id number] Acct: [id number] Name: HILDA VILLAVICENCIO Rep #: [id number] : [id number] Provider: Koby white MD Age/Sex: 53/F Location: [facility] Status: Signed Intake Vital Signs 10/17/18 Blood Pressure 100/66 10/17/18 Blood Pressure Location Rt brachial 10/17/18 Respiratory Rate 16 10/17/18 Pulse Rate 61 10/17/18 Pulse Ox 99 10/17/18 Body Mass Index (BMI) 19.1 Intake Visit Reasons: Rt Breast NC Bx Chief Complaint: discuss surgery Family And Marriage Counsellor Required: No Is patient in pain?: No Allergies tetracycline Adverse Reaction (Mild, Verified 10/17/18 08:02) GI Upset Medications NK 10/09/18 [History Confirmed 10/17/18] Is last menstrual period known: No Post menopausal: No Patient : No PFSH Medical History Abnormal ultrasound of breast (Acute) Abnormal mammogram (Acute) Breast cancer (Acute ~09/2018) Surgical History Hx of right breast biopsy (Acute) Hx of hysterectomy (Acute) Family History Father Heart disease Myocardial infarction Social History (Updated 10/17/18 @ 08:52 by Koby Michelle MD) Smokeless tobacco user: other Electronic Cigarette Use: with nicotine second hand exposure: No quit status: quit date established alcohol intake: current alcohol intake frequency: a few times a month substance use type: does not use caffeine: Yes what type of physical activity do you participate in: none frequency: does not exercise seatbelt use: always HPI HPI HPI: HILDA VILLAVICENCIO, is a 53 F who presents to the office today for HPI HPI Surgical H&P: Yes HPI: HILDA VILLAVICENCIO is a 53 F who presents to the office today for follow-up from an ultrasound-guided needle core biopsy. Patient underwent a right-sided ultrasound-guided needle core biopsy on the right side on 10/11/2018. This came back as an invasive ductal carcinoma nuclear grade 2 it was estrogen and progesterone strongly positive and HER-2/gurpreet 1-2+. I have sat down with the patient and discussed both conservative and mastectomy options with her and she is interested in having a bilateral mastectomy. ROS General General: No weight change, appetite, fatigue, colon cancer, breast cancer or weakness HEENT HEENT: No difficulty swallowing, eye injury, eye surgery, swollen glands or hoarseness Endo Endocrine: No thyroid disease, diabetes mellitus, thyroid cancer, Hair loss, heat intolerance or cold intolerance Skin Skin: No rash or changing moles Breast Breast: Yes right breast lump, abnormal mammogram and abnormal US; no left breast lump, nipple discharge, breast pain or breast enlargement Musc Musculoskeletal: No back problems, arthritis, rheumatoid arthritis, gout or joint pain Cardio Cardiovascular: No murmur, pacemaker, heart disease, atrial fibrillation, high blood pressure, heart attack, heart stent, palpitations, shortness of breat with exertion or chest pain Psych Psychiatric: No depression, anxiety or hearing voices Resp Respiratory: No shortness of breath, No sleep apnea, No cough, No COPD, No asthma, No emphysema, No wheezing Gastro Gastrointestinal: No abdominal pain, No nausea or vomiting, No diarrhea, No constipation, No blood in stool, No acid reflux, No hemorrhoids, No ulcers, No gallbladder problem, No black,tarry stools Julio César Hematologic: No blood thinners, No blood disorders, No bleeding, No anemia, No blood clots Neuro Neurologic: No weakness Exam Const General: no acute distress, well developed, well hydrated Orientation: oriented to person, oriented to place, oriented to time [facility] Head: normocephalic, atraumatic Ears: external ears normal Mouth: moist mucous membranes Eyes Sclera: sclerae normal Pupils: normal by confrontation Neck Neck: no lymphadenopathy noted Neck mass: No Thyroid: thyroid normal, symmetrical Chest Chest palpation & inspection: normal inspection of the chest Breast inspection: normal inspection of the breasts Breast Palpation: No nipple discharge Other: Palpation of the right breast reveals small amount of bruising in the lower aspect of the breast.. Palpation of the left breast reveals no palpable masses. Axillary exam demonstrates no suspicious masses in either the left or right axilla. Resp Effort & Inspection: normal respiratory effort Auscultation: clear to auscultation bilaterally Percussion: percussion normal Cardio Rate: regular rate Rhythm: regular rhythm Heart Sounds: no murmurs GI Palpation: soft, no hepatosplenomegaly, no masses, nontender Rectal Exam: other Other: Rectal exam deferred. Extrem General: normal to inspection, no clubbing, cyanosis or edema Assessment & Plan Problems 1. Malignant neoplasm of lower-outer quadrant of right breast of female, estrogen receptor positive C50.511; Z17.0 Plan I have given the patient options for initial surgical treatment. Options are the following: lumpectomy followed by radiation therapy vs. mastectomy vs. mastectomy followed by immediate reconstruction. I have described the procedures to the patient. I have described the advantages and disadvantages of the options, but I have told the patient that among the options, the survival rate for breast cancer is the same. I have told the patient that with all the surgeries that a sentinel lymph node biopsy is required. I have described the procedure of sentinel lymph node biopsy to the patient. I have told the patient that if the biopsy is positive for metastatic disease, then a full axillary lymph node dissection is required. I have told the patient that adjuvant chemotherapy will be required should the lymph nodes reveal metastatic disease. Also, a full lymph node dissection will increase the risk for lymphedema, especially if there are 4 or more lymph nodes positive for metastatic disease and radiation to the axilla is also required. I have told the patient the risks of surgery, including but not limited to: infection, bleeding, scar tissue, seroma and persistent seroma, lymph leak, injury to any blood vessels, injury to any nerves (particularly the long thoracic, the thoracodorsal, and the second intercostal brachial and the resultant sequelae), lymphedema, cosmetic deformity, dysesthesias, wound infections, further surgery (especially if margins are not clear), complications of anesthesia, etc. the patient understands. The patient will think about the options and discuss it further with the family. The patient will contact me in the next few days when she decides what the patient wishes to do. I have answered all the patient?s questions at this point to her satisfaction and she has no further questions. Patient is opting for a right-sided mastectomy with sentinel lymph node biopsy. In addition she would also like to have a prophylactic left-sided mastectomy. My plan is to have the patient see our plastic surgeon for evaluation. Orders Referrals: Plastic surgery C50.919 Coding Level of Care Code Off vis,new,level 3 Diagnoses Malignant neoplasm of lower-outer quadrant of right breast of female, estrogen receptor positive C50.511; Z17.0 ??Estrogen receptor status: positive 10/17/18 0852 <Electronically signed by Koby patel MD> Date _ Koby Michelle MD [facility] Signature: Date (if applicable) CC: Cedric Valencia MD; John Jha MD ~ I have re-examined the patient. There are no clinical changes since date of exam.
--- NOTE | 2018-10-25 09:49 | PCM.PN.SRG ---
Subjective: Patient is sore in the sternal area. She is up and awake. - Physical Exam Vital Signs Temp Pulse Resp BP Pulse Ox 98.2 F 80 18 91/34 L 97 10/25/18 07:07 10/25/18 07:07 10/25/18 07:07 10/25/18 07:07 10/25/18 07:07 Oxygen Delivery Method Room Air Weight: 107 lb 12.897 oz Body Mass Index (BMI) 18.8 Intake and Output for Last 24 Hours 10/23/18 10/24/18 10/25/18 23:59 23:59 23:59 Intake Total 1207 / 1207 Output Total 430 / 430 1640 / 1640 Balance -430 / -430 -433 / -433 Laboratory Tests Past 24 Hrs 10/25/18 10/25/18 06:18 06:18 WBC 10.1 RBC 3.24 L Hgb 10.5 L Hct 32.2 L MCV 99.4 H MCH 32.4 H MCHC 32.6 RDW Std Deviation 45.1 H RDW Coeff of Bernarda 12.2 Plt Count 183 MPV 10.0 Sodium 141 Potassium 3.9 Chloride 107 Carbon Dioxide 29.0 Anion Gap 5 BUN 6 L Creatinine 0.80 Estim Creat Clear Calc 64.22 Est GFR (MDRD) Af Amer 97 Est GFR (MDRD) Non-Af 80 BUN/Creatinine Ratio 7.5 L Glucose 124 H Calcium 7.9 L Prealbumin 14.2 L Medical Necessity - Tobacco Use Smoking Status: Former smoker Tobacco Use: Non-smoker Assessment/Plan All Active Problems (Last Updated 10/20/18 @ 15:11 by Marta Arango) Disproportion of reconstructed breast (Acute) Acquired absence of bilateral breasts and nipples (Acute) Breast cancer, right (Acute) Hx of right breast biopsy (Acute) Hx of hysterectomy (Acute) Abnormal ultrasound of breast (Acute) Abnormal mammogram (Acute) I discussed with her the fact that the sentinel lymph node came back is negative. We will now have to wait for the final path report to come back. All other care per .
[2018-10-25 13:45] VITALS: BP 100/48; PULSE 84; RESP 18; TEMP 38.1; O2SAT 96
[2018-10-25 15:25] VITALS: TEMP 36.8
--- NOTE | 2018-10-25 15:45 | PCM.PN.SRG ---
Subjective: Postop #1 Patient has some incisional pain. She is a little unsteady on her feet with ambulation. - Physical Exam General: Alert, Oriented x3 HEENT: PERRLA, EOMI Oral: Moist Mucosa Neck: Supple Abdomen: Soft, Non-Distended Skin: Incision - Breast incisions are dry and intact. No clinical evidence of hematoma. No vascular compromise noted on the breast skin flaps. Neurological: Cranial nerves II-XII grossly intact Psych/Mental Status: Normal Affect, Appropriate Vital Signs Temp Pulse Resp BP Pulse Ox 98.3 F 84 18 100/48 L 96 10/25/18 15:25 10/25/18 13:45 10/25/18 13:45 10/25/18 13:45 10/25/18 13:45 Oxygen Delivery Method Room Air Weight: 107 lb 12.897 oz Body Mass Index (BMI) 18.8 Intake and Output for Last 24 Hours 10/23/18 10/24/18 10/25/18 23:59 23:59 23:59 Intake Total 1918 / 1918 Output Total 430 / 430 2300 / 2300 Balance -430 / -430 -382 / -382 Drainage 100 ml yesterday, 250 ml today. Laboratory Tests Past 24 Hrs 10/25/18 10/25/18 06:18 06:18 WBC 10.1 RBC 3.24 L Hgb 10.5 L Hct 32.2 L MCV 99.4 H MCH 32.4 H MCHC 32.6 RDW Std Deviation 45.1 H RDW Coeff of Bernarda 12.2 Plt Count 183 MPV 10.0 Sodium 141 Potassium 3.9 Chloride 107 Carbon Dioxide 29.0 Anion Gap 5 BUN 6 L Creatinine 0.80 Estim Creat Clear Calc 64.22 Est GFR (MDRD) Af Amer 97 Est GFR (MDRD) Non-Af 80 BUN/Creatinine Ratio 7.5 L Glucose 124 H Calcium 7.9 L Prealbumin 14.2 L Medical Necessity - Tobacco Use Smoking Status: Former smoker Tobacco Use: Non-smoker Assessment/Plan All Active Problems (Last Updated 10/20/18 @ 15:11 by Marta Arango) Disproportion of reconstructed breast (Acute) Acquired absence of bilateral breasts and nipples (Acute) Breast cancer, right (Acute) Hx of right breast biopsy (Acute) Hx of hysterectomy (Acute) Abnormal ultrasound of breast (Acute) Abnormal mammogram (Acute) 1. Right breast cancer. 2. Cancer phobia left breast. 3. Planned acquired absence bilateral breasts. 4. Planned disproportion reconstructed breasts. 5. Estrogen receptor status positive. 6. Former smoker. 7. Anemia of chronic disease, acute on chronic. Breast incisions are dry and intact. No clinical evidence of hematoma. No vascular compromise noted on her breast skin flaps. She complains of incisional pain. Will wean to po analgesia in anticipate for discharge tomorrow. She is a little unsteady on her feet with ambulation. Will discharge when she is more steady on her feet with ambulation. Prealbumin was 14.2. Encourage nutritional supplementation with protein to help the healing process. Continue IV Ancef until discharge. Will discharge on Cefadroxil until the drains are removed. Hgb was 10.5. Preop it was 13.0. She has anemia of chronic disease, acute on chronic. She had some operative blood loss of 150 ml. She also has some IV dilution from the surgery. Had 1700 ml of fluid intraop. Will recheck a Hgb tomorrow. Will send home on Iron supplementation. Keep head elevated. Continue vilma wrap for chest wall compression. Continue lifting restriction.
[2018-10-25 20:12] VITALS: BP 94/50; PULSE 69; RESP 16; TEMP 37.5; O2SAT 96
[2018-10-26 02:30] VITALS: BP 98/52; PULSE 81; RESP 18; TEMP 37.4; O2SAT 94
[2018-10-26] MEDS: oxyCODONE 5 MG Tablet 10 MG PO ×3 (02:43→13:08)
[2018-10-26 04:29] LABS: Hematocrit 28.7 % (37-47); Hemoglobin 9.5 g/dL (12.0-15.0); Mean Corp Hgb Conc 33.1 g/dL (32-36); Mean Corpuscular Hgb 32.6 pg (27.0-32.0); Mean Corpuscular Volume 98.6 fL (81-99); Mean Platelet Vol. 10.2 fl (6.2-12.0); Platelet Count 168 K/mm3 (150-450); RBC Distribution Width CV 12.5 % (11.6-14.6); Red Blood Count 2.91 M/mm3 (4.2-5.4); White Blood Count 8.9 K/mm3 (4.4-11.0)
[2018-10-26] MEDS: Cefazolin 1 GM/50 ML BAG IV ×2 (05:44→13:11)
[2018-10-26] MEDS: Enoxaparin 40 MG/0.4 ML Syringe SC (05:44)
[2018-10-26] MEDS: proMETHazine 25 MG Tablet PO (06:36)
[2018-10-26 08:16] VITALS: BP 94/50; PULSE 75; RESP 18; TEMP 37.4; O2SAT 95
[2018-10-26] MEDS: Docusate Sodium 100 MG Capsule PO (08:27)
[2018-10-26] MEDS: Iron Polysaccharide Complex 150 MG CAPSULE PO (08:30)
--- NOTE | 2018-10-26 14:38 | PCM.PN.SRG ---
Subjective: Postop #2 Patient is resting comfortably. - Physical Exam General: Alert, Oriented x3 HEENT: PERRLA, EOMI Oral: Moist Mucosa Neck: Supple Lungs: Clear to auscultation Abdomen: Soft, Non-Distended Skin: Incision - Breast incisions are dry and intact. No clinical evidence of hematoma. No vascular compromise noted on the breast skin flaps. Neurological: Cranial nerves II-XII grossly intact Psych/Mental Status: Normal Affect, Appropriate Vital Signs Temp Pulse Resp BP Pulse Ox 99.4 F H 75 18 94/50 L 95 10/26/18 08:16 10/26/18 08:16 10/26/18 08:16 10/26/18 08:16 10/26/18 08:16 Oxygen Delivery Method Room Air Weight: 107 lb 12.897 oz Body Mass Index (BMI) 18.8 Intake and Output for Last 24 Hours 10/24/18 10/25/18 10/26/18 23:59 23:59 23:59 Intake Total 3333 / 3333 939 / 939 Output Total 430 / 430 3715 / 3715 1270 / 1270 Balance -430 / -430 -382 / -382 -331 / -331 Drainage 315 ml yesterday, 70 ml today. Laboratory Tests Past 24 Hrs 10/26/18 04:00 WBC 8.9 RBC 2.91 L Hgb 9.5 L Hct 28.7 L MCV 98.6 MCH 32.6 H MCHC 33.1 RDW Std Deviation 45.0 H RDW Coeff of Bernarda 12.5 Plt Count 168 MPV 10.2 Medical Necessity - Tobacco Use Smoking Status: Former smoker Tobacco Use: Non-smoker Assessment/Plan All Active Problems (Last Updated 10/20/18 @ 15:11 by Marta Arango) Disproportion of reconstructed breast (Acute) Acquired absence of bilateral breasts and nipples (Acute) Breast cancer, right (Acute) Hx of right breast biopsy (Acute) Hx of hysterectomy (Acute) Abnormal ultrasound of breast (Acute) Abnormal mammogram (Acute) 1. Right breast cancer. 2. Cancer phobia left breast. 3. Planned acquired absence bilateral breasts. 4. Planned disproportion reconstructed breasts. 5. Estrogen receptor status positive. 6. Former smoker. 7. Anemia of chronic disease, acute on chronic. Breast incisions are dry and intact. No clinical evidence of hematoma. No vascular compromise noted on her breast skin flaps. She is tolerating po analgesia. She is more steady on her feet with ambulation. Prealbumin was 14.2. Encourage nutritional supplementation with protein to help the healing process. Hgb is 9.5 which is down from 10.5. She has anemia of chronic disease, acute on chronic. She had some operative blood loss of 150 ml. She also has some IV dilution from the surgery. Had 1700 ml of fluid intraop. Will recheck a Hgb as an outpatient. Will send home on Iron supplementation. Keep head elevated. Continue vilma wrap for chest wall compression. Continue lifting restriction. Discharge home today. Wrote script for Cefadroxil until the drains are removed (30 tabs). Wrote scripts for Percocet for pain (50 tabs) and for Valium for spasm (30 tabs). Wrote scripts for Phenergan for nausea (30 tabs) and a refill and for Colace for constipation (60 tabs). Wrote script for Iron supplementation (30 tabs) and 2 refills. Followup office one week. Followup Dr. Michelle one week to discuss the Pathology results.
--- NOTE | 2018-10-26 14:46 | PCM.DC ---
You will use the following diet at home:: No restrictions, Other - encourage nutritional supplementation with protein to help the healing process. Discharge Activity: May not drive while taking narcotic pain medications., May Not Shower - until the drains are removed., - - no heavy lifting. keep head elevated. May shower in (days): 14 - after the drains are removed. May resume sexual activity in: 10-14 days Weight Bearing Status: Weight bearing as tolerated Lifting Restrictions: 20 lbs. Keep extremity elevated above heart level: - - elevate head. Call your doctor if your incision/area has: Continuous Slow Oozing, Sudden Increased Bleeding, Increased Pain/ Swelling, Increased Redness, Foul Smelling Discharge, Swelling at the incision site, - - black skin. Call your doctor if you observe: Fever of 101 or Higher, Coldness, Increased Pain, Shortness of breath, Chest pain, Calf discomfort, Uncontrolled pain Suture Line Care: - - dry dressings daily.followed by compression vilma wrap. Change Dressing in (Days):: 1 - dry dressings daily Cleanse incision/area with: - - may get incisions wet in the shower after the drains are removed. Drain: Suction - amita drain x3 to bulb suction. empty and record output daily. Allergies/Adverse Reactions: Allergies tetracycline Adverse Reaction (Mild, Verified 10/22/18 14:30) GI Upset METALS Adverse Reaction (Severe, Uncoded 10/22/18 14:30) METALS WITH EXCEPTION OF TITANIUM DETERIORATE Medications to take at Discharge Cefadroxil [Duricef] 500 mg PO BID #30 cap 10/26/18 Diazepam [Valium] 5 mg PO 4X/DAY PRN PRN #30 tab 10/26/18 Docusate Sodium [Colace] 100 mg PO BID #60 cap 10/26/18 Iron Polysaccharide Complex [Ferrex 150] 150 mg PO DAILYCM #30 cap 10/26/18 Oxycodone HCl/Acetaminophen [Percocet 5/325] 1 - 2 tab PO 4X/DAY PRN PRN 7 Days #50 tab 10/26/18 proMETHazine tablet [Phenergan tablet] 25 mg PO 4X/DAY PRN PRN #30 tab 10/26/18 The following prescriptions were given: Docusate Sodium [Colace] 100 mg PO BID #60 cap Prescription Printed Cefadroxil [Duricef] 500 mg PO BID #30 cap Prescription Printed Iron Polysaccharide Complex [Ferrex 150] 150 mg PO DAILYCM #30 cap Prescription Printed Oxycodone HCl/Acetaminophen [Percocet 5/325] 1 - 2 tab PO 4X/DAY PRN PRN 7 Days #50 tab PRN Reason: Pain Prescription Printed proMETHazine tablet [Phenergan tablet] 25 mg PO 4X/DAY PRN PRN #30 tab PRN Reason: NAUSEA/VOMITING Prescription Printed Diazepam [Valium] 5 mg PO 4X/DAY PRN PRN #30 tab PRN Reason: Spasms Prescription Printed Orders to be completed after discharge: 12 Lead EKG [[facility]] Time Frame: 10/22/18, Facility: [facility], Location: Cardiovascular Services CBC-Complete Blood Cnt No Diff Time Frame: 10/22/18, Facility: [facility], Location: Laboratory CBC-Complete Blood Cnt No Diff Time Frame: 1 Week, Facility: [facility], Location: [place] [facility] Primary Care Physician: Cedric Valencia MD [Primary Care Provider] - Test Results: Test results from this visit will be discussed in further detail at your follow-up appointment, if applicable. Please Follow Up With: Derek Lewis MD When: one week. call [phone] for appt. Please Follow Up With: Koby Michelle MD When: one week. call [phone] for appt. Proposed Discharge Date: 10/26/18
[2018-10-26 15:42] VITALS: BP 99/63; PULSE 80; RESP 18; TEMP 37.1; O2SAT 94
== END 2018-10-26 16:45 | disposition home or self-care (01) ==
LOC: SDC 14:18
PROVIDERS: Surgery; Admitting Provider Surgery; Family Provider Family Medicine; PCP Family Medicine; Referring Provider Surgery; Visit Provider Surgery
PROC: (CPT 19307; principal; 2018-10-24 09:15)
PROC: (CPT 19303; 2018-10-24 09:15)
DX: C50.511 Malignant neoplasm of lower-outer quadrant of right female breast (principal); F45.29 Other hypochondriacal disorders; N65.1 Disproportion of reconstructed breast; Z87.891 Personal history of nicotine dependence; Z17.0 Estrogen receptor positive status [ER+]; Z40.01 Encounter for prophylactic removal of breast; D63.8 Anemia in other chronic diseases classified elsewhere
CPT/HCPCS: 00400; 15777; 19303 ×2; 19340; 36415; 38792; 80048; 84134; 85027; 88304; 88305; 88307; 88309; 88331; 88341; 88342; 93005; 96365; 96366; 96372; 96375; 99218; A9541; J7120; A4216; G0378; G0379; J2405; Q9968

== ENCOUNTER → 2018-12-05 17:20 | Outpatient (CLI) | payer BC, SELFPAY ==
[2018-12-05 14:30] VITALS: BMI 18.8
== END ==
PROVIDERS: Family Provider Family Medicine; PCP Family Medicine; Referring Provider Nurse Practitioner Family; Visit Provider Nurse Practitioner Family
DX: T81.89XA Other complications of procedures, not elsewhere classified, initial encounter (principal); N65.1 Disproportion of reconstructed breast; Z17.0 Estrogen receptor positive status [ER+]; Z90.13 Acquired absence of bilateral breasts and nipples; C50.911 Malignant neoplasm of unspecified site of right female breast
CPT/HCPCS: 87070; 87077; 87186; 87205

== ENCOUNTER 2018-12-09 07:37 | Day surgery (SDC) | payer BC, SELFPAY ==
[2018-12-05 14:30] VITALS: BMI 18.8
[2018-12-08 13:03] VITALS: BP 107/68; PULSE 69; RESP 16; TEMP 36.1; O2SAT 99; BMI 19.4
[2018-12-08 13:27] LABS: Hematocrit 38.5 % (37-47); Hemoglobin 12.6 g/dL (12.0-15.0); Mean Corp Hgb Conc 32.7 g/dL (32-36); Mean Corpuscular Hgb 31.7 pg (27.0-32.0); Mean Corpuscular Volume 96.7 fL (81-99); Mean Platelet Vol. 9.5 fl (6.2-12.0); Platelet Count 256 K/mm3 (150-450); RBC Distribution Width CV 12.2 % (11.6-14.6); RBC Distribution Width SD 43.6 fl (35.1-43.9); Red Blood Count 3.98 M/mm3 (4.2-5.4); White Blood Count 7.3 K/mm3 (4.4-11.0)
[2018-12-08 15:34] VITALS: BMI 19.4
--- NOTE | 2018-12-08 20:19 | HP.PCM_ITS ---
History and Physical Date of Admission: 12/09/18 HISTORY OF PRESENT ILLNESS 53 year old woman initially presented for evaluation for breast reconstruction after a recent diagnosis of right breast cancer from a biopsy on 10/11/18. Pathology showed invasive ductal carcinoma. ER was positive. AK was positive. HER2/gurpreet was equivocal for overexpression. Her initial mammogram and ultrasound were done on 09/30/18 and suspicious for carcinoma. Because of her fear of developing in the left breast a prophylactic mastectomy was discussed at the time of the mastectomy. On 10/24/18 the patient went to surgery where she underwent injection of 5 cc of Lymphazurin blue and right-sided mastectomy and right-sided sentinel lymph node biopsy by Dr. Michelle and prophylactic mastectomy left breast and immediate bilateral breast reconstruction with placement of submuscular saline tissue expanders (350 ml) and placement Alloderm Select Regenerative Tissue Matrix Graft (132 cm2 for each side) by Dr. Lewis. She did well initially. Her drains were removed as the incision was healing. On 11/19/18, she had her first saline tissue expansion with 200 ml in the left breast and 175 ml in the right breast. Last week she started developing some wound separation. The biologic graft was exposed. 150 ml of saline was removed which took pressure off the wound. A wound culture was done. It showed Klebsiella pneumoniae. She was started on Levaquin and had issues with it. It was then changed to Augmentin. Silver dressing changes were started. It was discussed with the patient about returning to the OR for operative debridement and secondary wound closure along with replacement saline tissue opto mechanical engineer. She voiced understanding and wished to proceed. PAST MEDICAL HISTORY Abnormal ultrasound of breast Abnormal mammogram Right breast cancer PAST SURGICAL HISTORY right breast biopsy hysterectomy injection of 5 cc of Lymphazurin blue and right-sided mastectomy and right-sided sentinel lymph node biopsy by Dr. Michelle and prophylactic mastectomy left breast and immediate bilateral breast reconstruction with placement of submuscular saline tissue expanders (350 ml) and placement Alloderm Select Regenerative Tissue Matrix Graft (132 cm2 for each side) by Dr. Lewis - 10/24/18 ALLERGIES tetracycline METALS MEDICATIONS NK FAMILY HISTORY Father - Heart disease, Myocardial infarction Mother - Respiratory disease Aunt - Respiratory disease SOCIAL HISTORY Smoking Status: Former smoker Smokeless tobacco user: other Electronic Cigarette Use: with nicotine second hand exposure: No quit status: quit date established alcohol intake: current alcohol intake frequency: a few times a month substance use type: does not use REVIEW OF SYSTEMS General - Denies fever, fatigue, and weight loss. Eyes - Denies cataracts and glaucoma. ENT - Denies nasal congestion and sore throat. Endocrine - Denies excessive thirst and urination. Has heat and cold intolerance. Has diagnosis of right breast cancer from biopsy on 10/11/18. Skin - Denies suspicious lesions and skin cancer. Musculoskeletal - Denies joint pain, joint stiffness, weakness of muscles and joints, back pain, and arthritis. Neuro - Denies headaches. Cardiovascular - Denies chest pain, fatigue, and shortness of breath with exertion. Psych - Denies anxiety and depression. Respiratory - Denies chronic cough and shortness of breath. Patient is a former smoker. Gastrointestinal - Denies nausea, vomiting, diarrhea, and constipation. Hematologic - Denies abnormal bruising and bleeding. Genitourinary - Denies hematuria and urinary frequency. PHYSICAL EXAMINATION General - Alert and Oriented. Her bra size is a B cup. HEENT - PERRL. EOMI. Throat is clear. Neck - Supple and nontender. No cervical adenopathy. Breasts - Left breast incision healing satisfactory. The right breast incision shows a separation on the central to superior aspect. It measured 2 x 1.2 x 0.4 cm. Biologic graft is visible. A wound culture was obtained. Minimal redness seen. Breast width is 13 cm bilaterally. No axillary adenopathy. The right breast skin is looser because it had been recently expanded. Lungs - Clear to auscultation. Heart - Regular rate and rhythm. Abdomen - Soft and nondistended. Some redundant skin and subcutaneous tissue noted between the umbilicus and pubic area. Extremities - FROM. No axillary adenopathy. Radial pulses are palpable. Neuro - CN II-XII grossly intact. Psych - Normal mood and affect. ASSESSMENT 1. Right breast cancer. 2. Cancer phobia left breast. 3. Acquired absence bilateral breasts. 4. Disproportion reconstructed breasts. 5. Estrogen receptor status positive. 6. Former smoker. 7. Exposed right breast reconstruction tissue opto mechanical engineer. 8. Nonhealing surgical wound right breast reconstruction. PLAN Discussed options with the patient. Can continue the Silver dressing changes and antibiotics. The wound should heal now that the saline has been removed taking pressure off the incision. The amount of time for healing may be in the neighborhood of 3-6 months because of the presence of the opto mechanical engineer. That would delay further reconstruction. Other option would be to return to the OR for excisional debridement of the wound with complex secondary wound closure. Unless gross pus is seen, can replace the opto mechanical engineer at the same time. If gross pus is seen, then would remove the opto mechanical engineer and after healing has occurred, replace the opto mechanical engineer at that time. Depending on the amount of pus that is seen, the wound may need to be left open and wound care started. Once the infection is under control, the wound can be secondarily closed. She has chosen the returning to the OR for wound closure and replacement saline tissue opto mechanical engineer. She had just returned to work. Anticipate at least 2 weeks off at this time. Drains will be placed followed by a compression vilma wrap. Anticipate the drains for 14 days. Patient was informed of the risks and complications of the procedure including alternatives to surgery. These were discussed with the patient personally. Patient voices understanding and wishes to proceed. Some of the risks and complications were included in a form from the [employer]. Surgery will be scheduled under general anesthesia and a possible surgical observation overnight stay in the hospital.
[2018-12-09] MEDS: Scopolamine 1mg/72hr Patch 1 PATCH TRANSDERM. (07:30)
[2018-12-09 08:30] VITALS: BP 89/37; PULSE 68; RESP 14; TEMP 36.9; O2SAT 98; BMI 19.4
[2018-12-09 08:31] LABS: Bedside Glucose 123 mg/dL (70-110)
[2018-12-09] MEDS: Magnesium Sulfate 4gm/100mL 4 GM/100 ML IV.SOLN. IV (08:42)
[2018-12-09] MEDS: Lactated Ringers 1,000 ML 40 ML IV (08:45)
[2018-12-09] MEDS: Acetaminophen 500 MG Tablet 1000 MG PO (08:46)
[2018-12-09] MEDS: Gabapentin 600 MG Tablet PO (08:47)
[2018-12-09] MEDS: levoFLOXacin IV 500 MG/100 ML BAG 100 MG IV (08:59)
--- NOTE | 2018-12-09 09:30 | BRBX_PTH ---
PATIENT: HILDA VILLAVICENCIO LOC: [facility] [place] U#:[id number] AGE/SX: 53/F ROOM: RE12/09/[address]: Dr. Derek Lewis MD : 1965 BED: DIS: 12/09/2018 SPEC #: [id number] RECD: 12/09/18 13:28 STATUS: CHIDI ROS #: [id number] DALE: 12/09/18 09:[address]: Derek Lewis DEPT: SURGICAL PATHOLOGY RECD BY: Travis Quinones ENTERED: 12/09/18 13:40 SP TYPE: BREAST BX OTHR DR: Dr. Cedric Valencia MD Tissues: Right breast, NOS Procedures: Surgery Specimen Level III HEADER OPERATION: Surgical prep breast reconstruction with excisional debridement PRE-OP DIAGNOSIS: Exposed right breast reconstruction tissue filling separator; nonhealing surgical wound right breast reconstruction TISSUE SUBMITTED: Right breast biologic, tissue filling separator and debrided tissue MICROSCOPIC DIAGNOSIS Right breast biopsy with tissue filling separator and debrided tissue: Pieces of skin and fibroadipose with acute and chronic inflammation and foreign body giant cell reaction. Tissue filling separator (gross only). SHAWNA:jose enrique 12/10/18 MICROSCOPIC DESCRIPTION Slides are reviewed. GROSS DESCRIPTION Received in fixative is one container labeled with the patient's name and designated breast biologic, tissue filling separator and debrided tissue. The specimen consists of a piece of wagner-white tissue consistent with capsule measuring 18 x 9 x 0.1 cm. Also present in the container are multiple pieces of wagner soft tissue measuring in aggregate 7 x 4.5 x 0.5 cm. Also present in the container is a collapsed material consistent with tissue expanded measuring 11 cm in diameter and up to 1 cm in thickness. The inscription on the tissue filling separator says Dian [id number], [facility] 350 cc. Deburr Technician sections from the skin and soft tissue are submitted in two cassettes. Tissue filling separator is for gross only. / SHAWNA:jose enrique 12/09/18 TC:5 CPT: 37489
--- NOTE | 2018-12-09 11:13 | PCM.OPRPT ---
Report of Operation Date of Procedure: 12/09/18 Pre-Operative Diagnosis: 1. Right breast cancer. 2. Cancer phobia left breast. 3. Acquired absence bilateral breasts. 4. Disproportion reconstructed breasts. 5. Estrogen receptor status positive. 6. Former smoker. 7. Exposed infected right breast reconstruction tissue cotton puller. 8. Nonhealing infected surgical wound right breast reconstruction. Post-Operative Diagnosis: Same. Surgery/Procedure Performed:: 1. Surgical preparation right breast reconstruction with excisonal debridement nonhealing infected wound and complex secondary wound closure. 2. Revision right breast reconstruction with excision acellular dermal matrix graft and removal of exposed infected saline tissue cotton puller. Description of Surgical Findings:: 53 year old woman initially presented for evaluation for breast reconstruction after a recent diagnosis of right breast cancer from a biopsy on 10/11/18. Pathology showed invasive ductal carcinoma. ER was positive. NV was positive. HER2/gurpreet was equivocal for overexpression. Her initial mammogram and ultrasound were done on 09/30/18 and suspicious for carcinoma. Because of her fear of developing in the left breast a prophylactic mastectomy was discussed at the time of the mastectomy. On 10/24/18 the patient went to surgery where she underwent injection of 5 cc of Lymphazurin blue and right-sided mastectomy and right-sided sentinel lymph node biopsy by Dr. Mcihelle and prophylactic mastectomy left breast and immediate bilateral breast reconstruction with placement of submuscular saline tissue expanders (350 ml) and placement Alloderm Select Regenerative Tissue Matrix Graft (132 cm2 for each side) by Dr. Lewis. She did well initially. Her drains were removed as the incision was healing. On 11/19/18, she had her first saline tissue expansion with 200 ml in the left breast and 175 ml in the right breast. Last week she started developing some wound separation. The biologic graft was exposed. 150 ml of saline was removed which took pressure off the wound. A wound culture was done. It showed Klebsiella pneumoniae. She was started on Levaquin and had issues with it. It was then changed to Augmentin. Silver dressing changes were started. It was discussed with the patient about returning to the OR for operative debridement and secondary wound closure along with replacement saline tissue cotton puller. She voiced understanding and wished to proceed. Patient was informed of the risks and complications of the procedure including alternatives to surgery. These were discussed with the patient personally. Patient voices understanding and wishes to proceed. Some of the risks and complications were included in a form from the [employer]. I used Vishal absorbable hemostat. Reference Number - [id number]. Lot Number - [id number]. Expiration - June 13, 2023. licensed plumber: Eran Alvarez. Type of Anesthesia:: General Specimen's removed: Right breast soft tissue and acellular dermal matrix graft and exposed saline tissue cotton puller to Pathology and Microbiology. Drains: Cameron x2. Estimated Blood Loss (mL): 25 ml. Description of Procedure: Patient was taken to OR in supine position and was placed under general anesthesia. The right breast was prepped and draped in the usual fashion. SCD's were placed for DVT prophylaxis. Perioperative antibiotics were given intravenously. Using xylocaine with epinephrine, the right breast wound was infiltrated. After waiting 5 minutes for the anesthetic to take effect, I excised the nonhealing wound including the previous mastectomy incision down into the subcutaneous tissue. The biologic graft was sharply excised and the saline tissue cotton puller was removed. Some exudate was present around the cotton puller. A curette was used to further debride the breast wound. Minimal residual seroma was seen. Tissue that was excised and debrided was sent to Pathology for analysis to rule out carcinoma and to Microbiology for culture. The wound was irrigated with Irrisept 0.05% Chlorhexidine solution. After waiting a minute, the breast wound was further irrigated with saline. Hemostasis was obtained with electrocautery. I placed 2 size 15 Cameron drains through separate stab incisions laterally and secured to the skin using 3-0 Nylon suture. I then sprayed Vishal absorbable hemostat into the breast wound to minimize seroma formation postoperatively. The skin flaps were slightly inflamed and I felt there would be too much tension on the incision if I replaced the saline tissue cotton puller. Especially since the preop culture showed Klebsiella. Therefore I will replace the saline tissue cotton puller in a delayed fashion through a separate incision. I will complete the mastopexy type incision with a horizontal incision inferiorly at a later date which is a safer alternative than to try and replace the saline tissue cotton puller at this time. I then closed the breast wound in a complex secondary wound fashion using 3-0 Monocryl suture for the deep dermis and subcutaneous tissue. The skin was approximated with 3-0 Prolene vertical mattress interrupted sutures. Angelinalix gauze was applied to the incision followed by compression vilma wrap. Patient tolerated the procedure well and was sent to PACU in satisfactory condition. Patient will be sent home on antibiotics and pain medication. Will continue antibiotics with Augmentin for the Klebsiella. A positive culture may necessitate antibiotic modification. Will remove drains in 10-14 days. I anticipate replacing the saline tissue cotton puller in a delayed fashion in approximately 2 months. Grafts/Implants Used: None. - Complications None. - Admit VTE Documentation VTE Present on Admission: No VTE Mechan Device Prophylaxis: SCD's VTE Pharm Prophylaxis ordered?: No Code Visit Surgery Charges CPT - 68990 ICD-10 - C50.911, T85.49xA, T81.89xA, F40.298, Z90.13, N65.1, Z17.0, Z87.891 57373 C50.911, T85.49xA, T81.89xA, F40.298, Z90.13, N65.1, Z17.0, Z87.891
--- NOTE | 2018-12-09 11:25 | DCINST_ITS ---
You will use the following diet at home:: No restrictions, Other - encourage nutritional supplementation with protein to help the healing process. Discharge Activity: May not drive while taking narcotic pain medications., May Shower - after the drains are removed., - - no heavy lifting. keep head elevated. May shower in (days): 14 - after the drains are removed. May resume sexual activity in: 10-14 days Weight Bearing Status: Weight bearing as tolerated Lifting Restrictions: 20 lbs. Keep extremity elevated above heart level: - - elevate head. Call your doctor if your incision/area has: Continuous Slow Oozing, Sudden Increased Bleeding, Increased Pain/ Swelling, Increased Redness, Foul Smelling Discharge, Swelling at the incision site Call your doctor if you observe: Fever of 101 or Higher, Coldness, Increased Pain, Shortness of breath, Chest pain, Calf discomfort, Uncontrolled pain Suture Line Care: - - apply antibiotic ointment to suture line daily. Change Dressing in (Days):: 2 - dry dressings daily. Cleanse incision/area with: - - may get incision wet in the shower after the drains are removed. Drain: Suction - amita drain x2 to bulb suction. empty and reocrd output daily. Additional Instructions: Patient has Augmentin at home and will continue them. She also has Colace and Phenergan at home for use prn. Allergies/Adverse Reactions: Allergies tetracycline Adverse Reaction (Mild, Verified 12/09/18 08:23) GI Upset cefadroxil [From Duricef] Adverse Reaction (Verified 12/09/18 08:23) gi upset METALS Adverse Reaction (Severe, Uncoded 12/09/18 08:23) METALS WITH EXCEPTION OF TITANIUM DETERIORATE Medications to take at Discharge Calcium (Elemental) [Os-Jose Manuel 500] 500 mg PO DAILY 12/08/18 Docusate Sodium [Colace] 100 mg PO .2XWEEK 12/08/18 Ergocalciferol [Vitamin D] 50,000 unit PO MOWE 12/08/18 Iron Polysaccharide Complex [Ferrex 150] 150 mg PO .2XWEEK 12/08/18 amoxicillin 875 mg-potassium clavulanate 125 mg tablet 1 tab PO BID 14 Days #28 tab 12/08/18 Diazepam [Valium] 5 mg PO TID PRN PRN #20 tab 12/09/18 Insulin Lispro [Humalog KwikPen] 1 - 6 unit SUBCUT Q4H PRN PRN insuln.pen 12/09/18 Oxycodone HCl/Acetaminophen [Percocet 5/325] 1 tab PO Q4H PRN PRN 7 Days #40 tab 12/09/18 The following prescriptions were given: Oxycodone HCl/Acetaminophen [Percocet 5/325] 1 tab PO Q4H PRN PRN 7 Days #40 tab PRN Reason: Pain Prescription Printed Diazepam [Valium] 5 mg PO TID PRN PRN #20 tab PRN Reason: Spasms Prescription Printed Primary Care Physician: Cedric Valencia MD [Primary Care Provider] - Test Results: Test results from this visit will be discussed in further detail at your follow- up appointment, if applicable. Please Follow Up With: Derek Lewis MD When: one week. call [phone] for appt. Proposed Discharge Date: 12/09/18
[2018-12-09 11:35] VITALS: BP 100/55; BP 89/37; PULSE 86; RESP 18; TEMP 36.6; O2SAT 100
[2018-12-09 11:45] VITALS: BP 101/43; BP 89/37; PULSE 75; RESP 18; O2SAT 100
[2018-12-09 11:54] VITALS: BP 105/55; BP 89/37; PULSE 72; RESP 18; TEMP 36.4; O2SAT 100
[2018-12-09 13:47] VITALS: BP 89/37; BP 93/38; PULSE 70; RESP 16; TEMP 36.9; O2SAT 96
== END 2018-12-09 13:48 | disposition home or self-care (01) ==
LOC: SDC 07:37 → AC 07:37
PROVIDERS: Anesthesiology; Family Provider Family Medicine; PCP Family Medicine; Referring Provider Surgery; Visit Provider Surgery
PROC: (CPT 19357; principal; 2018-12-09 09:15)
DX: T85.79XA Infection and inflammatory reaction due to other internal prosthetic devices, implants and grafts, initial encounter (principal); C50.911 Malignant neoplasm of unspecified site of right female breast; Z17.0 Estrogen receptor positive status [ER+]; Z90.13 Acquired absence of bilateral breasts and nipples; F45.29 Other hypochondriacal disorders; N65.1 Disproportion of reconstructed breast; D64.9 Anemia, unspecified; Z87.891 Personal history of nicotine dependence
CPT/HCPCS: 00402; 19380; 82962; 85027; 87070; 87075; 87102; 87176; 87205; 87206; 88304; 88305; J7120; J2405

== ENCOUNTER 2019-02-03 13:34 | Observation (INO) | payer BC, SELFPAY ==
[2019-01-14 10:29] VITALS: BMI 19.4
--- NOTE | 2019-02-02 23:04 | PCM.HP.BLA ---
History and Physical Date of Admission: 02/03/19 HISTORY OF PRESENT ILLNESS 53 year old woman initially presented for evaluation for breast reconstruction after a recent diagnosis of right breast cancer from a biopsy on 10/11/18. Pathology showed invasive ductal carcinoma. ER was positive. ME was positive. HER2/gurpreet was equivocal for overexpression. Her initial mammogram and ultrasound were done on 09/30/18 and suspicious for carcinoma. Because of her fear of developing in the left breast a prophylactic mastectomy was discussed at the time of the mastectomy. On 10/24/18 the patient went to surgery where she underwent injection of 5 cc of Lymphazurin blue and right-sided mastectomy and right-sided sentinel lymph node biopsy by Dr. Michelle and prophylactic mastectomy left breast and immediate bilateral breast reconstruction with placement of submuscular saline tissue expanders (350 ml) and placement Alloderm Select Regenerative Tissue Matrix Graft (132 cm2 for each side) by Dr. Lewis. She did well initially. When we started the saline tissue expansion, she developed some incisional breakdown on the right with exposure of the silk washing machine operator. She returned to the operating room on 12/09/18 where she underwent surgical preparation right breast reconstruction with excisional debridement nonhealing infected wound and complex secondary wound closure and revision right breast reconstruction with excision acellular dermal matrix graft and removal of exposed infected saline tissue silk washing machine operator. Postop healing has been uneventful. She presents today for the next stage in the breast reconstruction process which is placement of a submuscular saline tissue silk washing machine operator right breast with possible placement of acellular dermal matrix graft. PAST MEDICAL HISTORY Abnormal ultrasound of breast Abnormal mammogram Right breast cancer Acquired absence bilateral breasts Disproportion reconstructed breasts Exposed right breast tissue silk washing machine operator PAST SURGICAL HISTORY right breast biopsy hysterectomy injection of 5 cc of Lymphazurin blue and right-sided mastectomy and right-sided sentinel lymph node biopsy by Dr. Michelle and prophylactic mastectomy left breast and immediate bilateral breast reconstruction with placement of submuscular saline tissue expanders (350 ml) and placement Alloderm Select Regenerative Tissue Matrix Graft (132 cm2 for each side) by Dr. Lewis - 10/24/18 Surgical preparation right breast reconstruction with excisional debridement nonhealing infected wound and complex secondary wound closure and revision right breast reconstruction with excision acellular dermal matrix graft and removal of exposed infected saline tissue silk washing machine operator - 12/09/18 ALLERGIES tetracycline METALS MEDICATIONS NK FAMILY HISTORY Father - Heart disease, Myocardial infarction Mother - Respiratory disease Aunt - Respiratory disease SOCIAL HISTORY Smoking Status: Former smoker Smokeless tobacco user: other Electronic Cigarette Use: with nicotine second hand exposure: No quit status: quit date established alcohol intake: current alcohol intake frequency: a few times a month substance use type: does not use REVIEW OF SYSTEMS General - Denies fever, fatigue, and weight loss. Eyes - Denies cataracts and glaucoma. ENT - Denies nasal congestion and sore throat. Endocrine - Denies excessive thirst and urination. Has heat and cold intolerance. Has diagnosis of right breast cancer from biopsy on 10/11/18. Skin - Denies suspicious lesions and skin cancer. Musculoskeletal - Denies joint pain, joint stiffness, weakness of muscles and joints, back pain, and arthritis. Neuro - Denies headaches. Cardiovascular - Denies chest pain, fatigue, and shortness of breath with exertion. Psych - Denies anxiety and depression. Respiratory - Denies chronic cough and shortness of breath. Patient is a former smoker. Gastrointestinal - Denies nausea, vomiting, diarrhea, and constipation. Hematologic - Denies abnormal bruising and bleeding. Genitourinary - Denies hematuria and urinary frequency. PHYSICAL EXAMINATION General - Alert and Oriented. Her bra size is a B cup. HEENT - PERRL. EOMI. Throat is clear. Neck - Supple and nontender. No cervical adenopathy. Breasts - Left breast incision is healed. Saline tissue silk washing machine operator is in place. The right breast incision is healed. Breast width is 13 cm bilaterally. No axillary adenopathy. The right breast skin is looser because it had been recently expanded. Lungs - Clear to auscultation. Heart - Regular rate and rhythm. Abdomen - Soft and nondistended. Some redundant skin and subcutaneous tissue noted between the umbilicus and pubic area. Extremities - FROM. No axillary adenopathy. Radial pulses are palpable. Neuro - CN II-XII grossly intact. Psych - Normal mood and affect. ASSESSMENT 1. Right breast cancer. 2. Cancer phobia left breast. 3. Acquired absence bilateral breasts. 4. Disproportion reconstructed breasts. 5. Estrogen receptor status positive. 6. Former smoker. 7. Exposed right breast reconstruction tissue silk washing machine operator with subsequent removal. PLAN Since the exposed tissue silk washing machine operator has been removed, the right breast incision has healed. She is ready to proceed with the next stage in the breast reconstruction process which is placement of a submuscular saline tissue silk washing machine operator and possible placement of acellular dermal matrix graft. A drain will be placed for several days (10-14 days) and be maintained on antibiotics until the drain is removed. She will also wear a compression vilma wrap. I don't want to go through the vertical incision at this time. Since the initial plan was to proceed with a mastopexy type incision for the mastectomy and reconstruction, I will go through a separate incision inferiorly and horizontally. This will complete the Tzone mastopexy type incision. Any tissue that is removed will be sent to Pathology for analysis to rule out carcinoma. If any abnormal fluid or exudate is seen, then tissue will be sent to Microbiology for culture. A positive culture will necessitate antibiotic therapy. Patient was informed of the risks and complications of the procedure including alternatives to surgery. These were discussed with the patient personally. Patient voices understanding and wishes to proceed. Some of the risks and complications were included in a form from the [employer]. Surgery will be scheduled under general anesthesia with a surgical observation overnight stay in the hospital. At the time of the removal of the previously exposed saline tissue silk washing machine operator, a wound culture showed Klebsiella pneumoniae. Will treat the patient perioperatively with Levaquin.
[2019-02-03] VITALS (14 sets, daily range): BP systolic 86–112; BP diastolic 50–97; PULSE 58–79; RESP 16–18; TEMP 36.5–37.4; O2SAT 96–100; BMI 19.4
[2019-02-03] MEDS: Magnesium Sulfate 4gm/100mL 4 GM/100 ML IV.SOLN. IV (10:47)
[2019-02-03] MEDS: Lactated Ringers 1,000 ML 40 ML IV (10:47)
[2019-02-03] MEDS: Scopolamine 1mg/72hr Patch 1 PATCH TRANSDERM. (10:50)
[2019-02-03] MEDS: Acetaminophen 500 MG Tablet 1000 MG PO ×3 (10:50→23:00)
[2019-02-03] MEDS: Gabapentin 600 MG Tablet PO (10:50)
[2019-02-03 11:15] LABS: Bedside Glucose 108 mg/dL (70-110)
[2019-02-03] MEDS: levoFLOXacin IV 500 MG/100 ML BAG 100 MG IV (11:24)
--- NOTE | 2019-02-03 11:55 | BRBX_PTH ---
PATIENT: HILDA VILLAVICENCIO LOC: MS3 U#:[id number] AGE/SX: 53/F ROOM: MS312 RE02/03/[address]: Dr. Derek Lewis MD : [id number] BED: 1 DIS: 02/04/2019 SPEC #: [id number] RECD: 02/03/19 15:11 STATUS: CHIDI REBethany #: [id number] DALE: 02/03/19 11:[address]: Derek Lewis DEPT: SURGICAL PATHOLOGY RECD BY: Travis Quinones ENTERED: 02/04/19 11:59 SP TYPE: BREAST BX OTHR DR: Dr. Cedric Valencia MD Tissues: Right breast, NOS Procedures: Surgery Specimen Level IV HEADER OPERATION: Delayed breast reconstruction with placement saline tissue PRE-OP DIAGNOSIS: Right breast cancer; cancer phobia left breast; acquired absence bilateral breasts TISSUE SUBMITTED: Right breast tissue MICROSCOPIC DIAGNOSIS Skin and soft tissue of right breast, excision: Suture granulomas, fibrosis and minimal chronic inflammation. Focal fat necrosis. No evidence of malignancy. AM:jose enrique 02/05/19 MICROSCOPIC DESCRIPTION Slides are reviewed. GROSS DESCRIPTION Received in fixative is one container labeled with the patient's name and designated breast tissue. The specimen consists of skin with attached yellow fatty tissue measuring 6 x 0.6 cm and a depth of excision measuring 1.5 cm. The specimen is inked and serially sectioned to reveal yellow fatty cut surfaces. No mass lesion is identified. The specimen is sectioned and totally submitted in three cassettes. / AM:jose enrique 02/04/19 TC:3 CPT: 24043
--- NOTE | 2019-02-03 13:25 | PCM.OPRPT ---
Report of Operation Date of Procedure: 02/03/19 Pre-Operative Diagnosis: 1. Right breast cancer. 2. Cancer phobia left breast. 3. Acquired absence bilateral breasts. 4. Disproportion reconstructed breasts. 5. Estrogen receptor status positive. 6. Former smoker. 7. Exposed right breast reconstruction tissue champagne maker with subsequent removal. Post-Operative Diagnosis: Same. Surgery/Procedure Performed:: 1. Delayed right breast reconstruction with placement of submuscular saline tissue champagne maker (350 ml). 2. Injected 50 ml saline into left breast reconstruction tissue champagne maker, (250 ml in a 350 ml champagne maker). Description of Surgical Findings:: 53 year old woman initially presented for evaluation for breast reconstruction after a recent diagnosis of right breast cancer from a biopsy on 10/11/18. Pathology showed invasive ductal carcinoma. ER was positive. DC was positive. HER2/gurpreet was equivocal for overexpression. Her initial mammogram and ultrasound were done on 09/30/18 and suspicious for carcinoma. Because of her fear of developing in the left breast a prophylactic mastectomy was discussed at the time of the mastectomy. On 10/24/18 the patient went to surgery where she underwent injection of 5 cc of Lymphazurin blue and right-sided mastectomy and right-sided sentinel lymph node biopsy by Dr. Michelle and prophylactic mastectomy left breast and immediate bilateral breast reconstruction with placement of submuscular saline tissue expanders (350 ml) and placement Alloderm Select Regenerative Tissue Matrix Graft (132 cm2 for each side) by Dr. Lewis. She did well initially. When we started the saline tissue expansion, she developed some incisional breakdown on the right with exposure of the champagne maker. She returned to the operating room on 12/09/18 where she underwent surgical preparation right breast reconstruction with excisional debridement nonhealing infected wound and complex secondary wound closure and revision right breast reconstruction with excision acellular dermal matrix graft and removal of exposed infected saline tissue champagne maker. Postop healing has been uneventful. She presents today for the next stage in the breast reconstruction process which is placement of a submuscular saline tissue champagne maker right breast with possible placement of acellular dermal matrix graft. I used Isabella Poweredtieraa, Ultra High Profile, Smooth Breast Tissue Drywall Metal Stud Worker, Suture Tabs, Integral Injection Dome, (350 ml). Reference Number - [id number]. Lot Number - [id number]. Serial Number - [id number]. Expiration - November 27, 2022. I used Vishal absorbable hemostat. Reference Number - [id number]. Lot Number - [id number]. Expiration - November 13, 2023. applications support analyst: Erna Alvarez. Type of Anesthesia:: General Specimen's removed: Right breast tissue to Pathology and Microbiology. Drains: Cameron. Estimated Blood Loss (mL): 20 ml. Description of Procedure: In the preop area, markings were made. Sternal midline was marked down to the umbilicus. The inframammary folds were marked bilaterally. I made horizontal markings on the right breast at the inferior aspect of the vertical incision. This will complete the mastopexy type Tzone incision as I wanted to enter the submuscular pocket through a separate incision to minimize wound healing issues. The patient was taken to operating room in supine position and placed under general anesthesia. Both breasts were prepped and draped in the usual fashion. Using xylocaine with epinephrine, I infiltrated the inferior horizontal marking. After waiting 5 minutes for the anesthetic to take effect, incision was made through the inferior horizontal marking into the subcutaneous tissue. I dissected to the chest wall pectoralis muscle. I then dissected superiorly in a submuscular fashion to create the submuscular breast pocket. The submuscular pocket was dissected superior toward the clavicle and medially to the sternal area and inferiorly to the inframammary fold. Hemostasis was obtained with electrocautery. The wound was irrigated with Irrisept 0.05% Chlorhexidine solution. This was followed by saline irrigation. A size 15 Cameron drain was placed through a separate stab incison laterally and secured to the skin with 3-0 Nylon suture. I sprayed the breast pocket with Vishal absorbable hemostat to minimize seroma formation. It is a tight pocket so there is no need for acellular dermal matrix graft at this time. Based on the width of the breast pocket, I decided on a 350 ml champagne maker, Ultra High Profile. This was the same size champagne maker I had in initially. I removed the air from the champagne maker and then filled it with 50 ml saline. I squeezed the champagne maker to make sure there is not any leaks present and there wasn't any noted. I then removed the saline. I placed the champagne maker in sterile Betadine and then placed the champagne maker into the breast pocket. Prior to handling the champagne maker, I changed my gloves. I secured the champagne maker to the chest wall through the medial and inferior suture tabs with 3-0 Vicryl suture. The inferior horizontal incision was closed in a layered fashion with 3-0 Monocryl interrupted sutures for the deep dermis and subcutaneous tissue. The skin was approximated with 3-0 V lock unidirectional barbed running subcuticular suture. This was followed by Histoacryl skin tissue adhesive. There was no clinical evidence of hematoma. There was no evidence of vascular compromise to the breast skin flaps. I then palpated the port on the champagne maker left breast. I injected 50 ml of sterile saline into the champagne maker thus making it 250 ml in a 350 ml champagne maker. I dressed the incision with Kerlix gauze and ABD pad compression dressing. A compression vilma wrap was then applied. Patient tolerated the procedure well and was sent to PACU in satisfactory condition. Patient will be sent upstairs for continued postop care. Will send her home when she is tolerating po analgesia. The drain will be removed in 10-14 days. Grafts/Implants Used: Isabella Artoura, Ultra High Profile, Smooth, Breast Tissue Drywall Metal Stud Worker. - Complications None. - Admit VTE Documentation VTE Present on Admission: No VTE Mechan Device Prophylaxis: SCD's VTE Pharm Prophylaxis ordered?: Yes Code Visit Surgery Charges CPT - 70184 ICD-10 - C50.911, F40.298, Z90.13, N65.1, T85.49xA, Z98.86, Z17.0, Z87.891
[2019-02-03] MEDS: Lactated Ringers 1,000 ML 60 ML IV (14:15)
[2019-02-03] MEDS: Ensure Surgery 237 ML LIQUID PO (17:07)
[2019-02-03] MEDS: Gabapentin 100 MG Capsule 200 MG PO (17:07)
[2019-02-03 17:15] LABS: Prealbumin 20.8 mg/dL (20.0-40.0)
[2019-02-03] MEDS: Docusate Sodium 100 MG Capsule PO (21:01)
[2019-02-04 03:35] VITALS: BP 118/59; PULSE 56; RESP 16; TEMP 36.6; O2SAT 97
[2019-02-04] MEDS: oxyCODONE 5 MG Tablet PO ×2 (03:39→08:15)
[2019-02-04] MEDS: Lactated Ringers 1,000 ML 60 ML IV (03:42)
[2019-02-04] MEDS: Acetaminophen 500 MG Tablet 1000 MG PO ×2 (05:38→11:06)
[2019-02-04] MEDS: Iron Polysaccharide Complex 150 MG CAPSULE PO (05:40)
[2019-02-04 06:05] LABS: Hematocrit 37.1 % (37-47); Hemoglobin 12.1 g/dL (12.0-15.0); Mean Corp Hgb Conc 32.6 g/dL (32-36); Mean Corpuscular Hgb 31.2 pg (27.0-32.0); Mean Corpuscular Volume 95.6 fL (81-99); Mean Platelet Vol. 10.3 fl (6.2-12.0); Platelet Count 186 K/mm3 (150-450); RBC Distribution Width CV 12.3 % (11.6-14.6); RBC Distribution Width SD 43.2 fl (35.1-43.9); Red Blood Count 3.88 M/mm3 (4.2-5.4); White Blood Count 11.1 K/mm3 (4.4-11.0)
[2019-02-04 06:19] LABS: Anion Gap 5 (5-15); BUN 10 mg/dL (7-18); Calcium,Total 8.5 mg/dL (8.5-10.1); Chloride 111 mmol/L (98-107); Creatinine, Serum 0.77 mg/dL (0.55-1.02); EST Glomerular Filtration Rate 84 mL/min (>60); Est Glom Filt Rate - Afr Amer 102 mL/min (>60); Estimated Creatinine Clearance 67.96 ml/min; Glucose 120 mg/dL (74-106); Potassium 4.7 mmol/L (3.5-5.1); Sodium Level 139 mmol/L (136-145)
[2019-02-04 07:58] VITALS: BP 110/56; PULSE 82; RESP 16; TEMP 36.7; O2SAT 99
[2019-02-04] MEDS: Ensure Surgery 237 ML LIQUID PO (08:00)
[2019-02-04] MEDS: Gabapentin 100 MG Capsule 200 MG PO ×2 (08:00→11:06)
[2019-02-04] MEDS: Calcium (Elemental) 500 MG Tablet PO (08:01)
[2019-02-04 08:08] VITALS: O2SAT 98
[2019-02-04] MEDS: levoFLOXacin IV 500 MG/100 ML BAG 100 MG IV (10:59)
[2019-02-04] MEDS: Enoxaparin 40 MG/0.4 ML Syringe SC (11:00)
--- NOTE | 2019-02-04 12:07 | DCINST_ITS ---
You will use the following diet at home:: No restrictions Discharge Activity: May not drive while taking narcotic pain medications., May Not Shower - until the drain is removed., - - keep head elevated. no heavy lifting. May shower in (days): 10 - after the drain is removed. May resume sexual activity in: 10-14 days Weight Bearing Status: Weight bearing as tolerated Lifting Restrictions: 20 lbs. Keep extremity elevated above heart level: - - elevate head. Call your doctor if your incision/area has: Continuous Slow Oozing, Sudden Increased Bleeding, Increased Pain/ Swelling, Increased Redness, Foul Smelling Discharge, Swelling at the incision site Call your doctor if you observe: Fever of 101 or Higher, Coldness, Increased Pain, Shortness of breath, Chest pain, Calf discomfort, Uncontrolled pain Suture Line Care: - - dry dressings daily followed by vilma wrap. Change Dressing in (Days):: 1 - dry dressings daily. Cleanse incision/area with: - - may get incision wet in the shower after the drain is removed. Drain: Suction - amita drain to bulb suction. empty and record output daily. Allergies/Adverse Reactions: Allergies tetracycline Adverse Reaction (Mild, Verified 01/29/19 14:21) GI Upset cefadroxil [From Duricef] Adverse Reaction (Verified 01/29/19 14:21) gi upset METALS Adverse Reaction (Severe, Uncoded 01/14/19 10:27) METALS WITH EXCEPTION OF TITANIUM DETERIORATE Medications to take at Discharge Calcium (Elemental) [Os-Jose Manuel 500] 500 mg PO DAILY 12/08/18 Iron Polysaccharide Complex [Ferrex 150] 150 mg PO QODAY 12/08/18 Cholecalciferol (Vitamin D3) [Vitamin D3] 2,000 unit PO BID 01/29/19 Diazepam [Valium] 5 mg PO 4X/DAY PRN PRN #30 tab 02/03/19 Oxycodone HCl/Acetaminophen [Percocet 5/325] 1 tab PO Q4H PRN PRN 7 Days #40 tab 02/03/19 levoFLOXacin tablet [Levaquin tablet] 500 mg PO DAILY #15 tab 02/03/19 Docusate Sodium [Colace] 100 mg PO BID cap 02/04/19 The following prescriptions were given: levoFLOXacin tablet [Levaquin tablet] 500 mg PO DAILY #15 tab Prescription Printed Oxycodone HCl/Acetaminophen [Percocet 5/325] 1 tab PO Q4H PRN PRN 7 Days #40 tab PRN Reason: Pain Score 4-5/10 Prescription Printed Diazepam [Valium] 5 mg PO 4X/DAY PRN PRN #30 tab PRN Reason: Spasms Prescription Printed Primary Care Physician: Cedric Valencia MD [Primary Care Provider] - Test Results: Test results from this visit will be discussed in further detail at your follow- up appointment, if applicable. Please Follow Up With: Derek Lewis MD When: one week. call [phone] for appt. Proposed Discharge Date: 02/04/19
--- NOTE | 2019-02-04 12:10 | PN.SURG_ITS ---
Subjective: Postop #1 Patient is resting comfortably. She is tolerating po analgesia. She is anxious to go home. - Physical Exam Vitals/I&O's: Vital Signs Temp Pulse Resp BP Pulse Ox 98.1 F 82 16 110/56 L 98 02/04/19 07:58 02/04/19 07:58 02/04/19 07:58 02/04/19 07:58 02/04/19 08:08 Oxygen Flow Rate (L/min) 6 Oxygen Delivery Method Room Air Weight: 109 lb 12.8 oz Body Mass Index (BMI) 19.4 Intake and Output for Last 24 Hours 02/02/19 02/03/19 02/04/19 23:59 23:59 23:59 Intake Total 1982 1555 / 1555 Output Total 35 / 35 Balance 1965 1520 / 1520 Drainage 15 ml yesterday, 35 ml today. General: Alert, Oriented x3 HEENT: PERRLA, EOMI Oral: Moist Mucosa Neck: Supple Abdomen: Soft, Non-Distended Skin: Incision - right breast incision dry and intact. No clinical evidence of hematoma. No vascular compromise noted on the breast skin flaps. Neurological: Cranial nerves II-XII grossly intact Psych/Mental Status: Normal Affect, Appropriate Microbiology Past 72 Hours 02/03/19 Unknown Tissue - Breast Gram Stain - Final 02/03/19 Unknown Tissue - Breast Wound Culture - Preliminary No growth-Final to follow Laboratory Results 02/03/19 16:45: Prealbumin 20.8 02/04/19 05:30: WBC 11.1 H, RBC 3.88 L, Hgb 12.1, Hct 37.1, MCV 95.6, MCH 31.2, MCHC 32.6, RDW Std Deviation 43.2, RDW Coeff of Bernarda 12.3, Plt Count 186, MPV 10.3 02/04/19 05:30: Sodium 139, Potassium 4.7, Chloride 111 H, Carbon Dioxide 23.0, Anion Gap 5, BUN 10, Creatinine 0.77, Estim Creat Clear Calc 67.96, Est GFR (MDRD) Af Amer 102, Est GFR (MDRD) Non-Af 84, BUN/Creatinine Ratio 13.0, Glucose 120 H, Calcium 8.5 Current Medications Acetaminophen (Tylenol) 1,000 mg PO Q6 NELLA Last Admin: 02/04/19 11:06 Dose: 1,000 mg Documented by: Calcium Carbonate (Os-Joes Manuel 500) 500 mg PO DAILYCM [facility] Last Admin: 02/04/19 08:01 Dose: 500 mg Documented by: Cholecalciferol (Vitamin D) 2,000 unit PO BID [facility] Last Admin: 02/04/19 11:00 Dose: 2,000 unit Documented by: Diazepam (Valium) 5 mg PO 4X/DAY PRN PRN PRN Reason: SPASMS Docusate Sodium (Colace) 100 mg PO BID [facility] Last Admin: 02/04/19 10:59 Dose: Not Given Documented by: Enoxaparin Sodium (Lovenox) 40 mg SC DAILY [facility] Last Admin: 02/04/19 11:00 Dose: 40 mg Documented by: Enteral Nutritional Formula (Ensure Surgery) 237 ml PO TIDCM [facility] Last Admin: 02/04/19 11:06 Dose: Not Given Documented by: Gabapentin (Neurontin) 200 mg PO TIDCM [facility] Last Admin: 02/04/19 11:06 Dose: 200 mg Documented by: Hydromorphone HCl (Dilaudid Inj) 0.5 - 1 mg IV Q3H PRN PRN PRN Reason: Pain Score 6-10/10 Lactated Ringer's () 1,000 mls @ 40 mls/hr IV .Q25H [facility] Last Infusion: 02/03/19 14:52 Dose: Infused Documented by: Lactated Ringer's () 1,000 mls @ 60 mls/hr IV .[id number] [facility] Last Infusion: 02/04/19 12:06 Dose: 60 mls/hr Documented by: Levofloxacin (Levaquin Iv) 500 mg in 100 mls @ 100 mls/hr IV Q24 [facility] Last Infusion: 02/04/19 11:59 Dose: Infused Documented by: Sodium Chloride () 250 mls @ 15 mls/hr IV .[id number] PRN PRN Reason: Saline Flush Insulin Human Lispro (Humalog Kwikpen (Bkc)) 1 - 6 unit SC Q4H PRN PRN; Protocol PRN Reason: BG>/= 180, SEE PROTOCOL Magnesium Oxide (Mag-Ox 400) 400 mg PO BID PRN PRN PRN Reason: Constipation Ondansetron HCl (Zofran Odt) 4 mg PO Q6H PRN PRN PRN Reason: NAUSEA Oxycodone HCl (Oxyir) 5 - 10 mg PO Q4H PRN PRN PRN Reason: Pain Score 4-10/10 Last Admin: 02/04/19 08:15 Dose: 5 mg Documented by: Polysaccharide Iron Complex (Ferrex 150) 150 mg PO QODAY@0600 [facility] Last Admin: 02/04/19 05:40 Dose: 150 mg Documented by: Scopolamine HBr (Transderm-Scop) 1 patch TD Q3D [facility] Stop: 02/04/19 15:31 Last Admin: 02/03/19 17:06 Dose: Not Given Documented by: Sodium Chloride () 10 - 40 ml IV UD PRN PRN Reason: SALINE FLUSH Medical Necessity - Tobacco Use Smoking Status: Former smoker Assessment/Plan All Active Problems (Last Reviewed 01/14/19 @ 10:26 by Marta Arango) Exposed breast implant (Acute) Nonhealing surgical wound (Acute) Disproportion of reconstructed breast (Acute) Acquired absence of bilateral breasts and nipples (Acute) Breast cancer, right (Acute) Hx of right breast biopsy (Acute) Hx of hysterectomy (Acute) Abnormal ultrasound of breast (Acute) Abnormal mammogram (Acute) 1. Right breast cancer. 2. Cancer phobia left breast. 3. Acquired absence bilateral breasts. 4. Disproportion reconstructed breasts. 5. Estrogen receptor status positive. 6. Former smoker. 7. Exposed right breast reconstruction tissue real estate economist with subsequent removal. 8. s/p delayed right breast reconstruction with placement of submuscular saline tissue real estate economist (350 ml) and injected 50 ml saline into left breast reconstruction tissue real estate economist, (250 ml in a 350 ml real estate economist). Breast incision is dry and intact. No clinical evidence of hematoma. No vascular compromise noted on the breast skin flaps. She is tolerating po analgesia. Prealbumin was 20.8. Encourage nutritional supplementation with protein to help the healing process. Discharge home today. Keep head elevated. Continue vilma wrap compression and lifting restriction. Wrote script for Levaquin until the drain is removed. Wrote scripts for Percocet for pain (40 tabs) and for Valium for spasm (30 tabs). Followup office one week.
[2019-02-04 13:00] VITALS: BP 96/42; PULSE 70; RESP 16; TEMP 36.8; O2SAT 97
== END 2019-02-04 13:00 | disposition home or self-care (01) ==
LOC: MS3 16:01 → SDC 16:01
PROVIDERS: Admitting Provider Surgery; Family Provider Family Medicine; PCP Family Medicine; Referring Provider Surgery; Visit Provider Surgery
PROC: (CPT 19357; principal; 2019-02-03 11:40)
DX: C50.911 Malignant neoplasm of unspecified site of right female breast (principal); F45.29 Other hypochondriacal disorders; Z17.0 Estrogen receptor positive status [ER+]; N65.1 Disproportion of reconstructed breast; Z87.891 Personal history of nicotine dependence; Z90.13 Acquired absence of bilateral breasts and nipples
CPT/HCPCS: 19357; 36415; 80048; 82962; 84134; 85027; 87070; 87075; 87102; 87176; 87205; 87206; 88305; 96365; 96372; 99218; 99251; 99406; J7120; G0378; G0379; G0463; J2405

== ENCOUNTER 2019-05-08 13:20 | Observation (INO) | payer BC, SELFPAY ==
[2019-03-25 13:12] VITALS: BMI 19.4
[2019-04-30 14:08] VITALS: BMI 19.4
--- NOTE | 2019-05-06 06:52 | EKG12_ITS ---
Test Reason : PRE-OP Blood Pressure : / mmHG Vent. Rate : 068 BPM Atrial Rate : 068 BPM P-R Int : 132 ms QRS Dur : 084 ms QT Int : 376 ms P-R-T Axes : 083 095 080 degrees QTc Int : 399 ms Normal sinus rhythm Possible Left atrial enlargement Rightward axis Borderline ECG Confirmed by SAMANTHA LANDA ([id number]), photography editor CHEPE GUPTA ([id number]) on 05/07/2019 9:29:47 AM Referred By: Derek Lewis Confirmed By:SAMANTHA LANDA
[2019-05-06 07:18] LABS: Hematocrit 41.4 % (37-47); Hemoglobin 13.8 g/dL (12.0-15.0); Mean Corp Hgb Conc 33.3 g/dL (32-36); Mean Corpuscular Hgb 31.9 pg (27.0-32.0); Mean Corpuscular Volume 95.6 fL (81-99); Platelet Count 260 K/mm3 (150-450); RBC Distribution Width CV 12.9 % (11.6-14.6); RBC Distribution Width SD 45.8 fl (35.1-43.9); Red Blood Count 4.33 M/mm3 (4.2-5.4); White Blood Count 5.9 K/mm3 (4.4-11.0)
--- NOTE | 2019-05-07 23:58 | HP.PCM_ITS ---
History and Physical Date of Admission: 05/08/19 HISTORY OF PRESENT ILLNESS 53 year old woman initially presented for evaluation for breast reconstruction after a recent diagnosis of right breast cancer from a biopsy on 10/11/18. Pathology showed invasive ductal carcinoma. ER was positive. AR was positive. HER2/gurpreet was equivocal for overexpression. Her initial mammogram and ultrasound were done on 09/30/18 and suspicious for carcinoma. Because of her fear of developing in the left breast a prophylactic mastectomy was discussed at the time of the mastectomy. On 10/24/18 the patient went to surgery where she underwent injection of 5 cc of Lymphazurin blue and right-sided mastectomy and right-sided sentinel lymph node biopsy by Dr. Michelle and prophylactic mastectomy left breast and immediate bilateral breast reconstruction with placement of submuscular saline tissue expanders (350 ml) and placement Alloderm Select Regenerative Tissue Matrix Graft (132 cm2 for each side) by Dr. Lewis. She did well initially. When we started the saline tissue expansion, she developed some incisional breakdown on the right with exposure of the soybean specialties cook. She returned to the operating room on 12/09/18 where she underwent surgical preparation right breast reconstruction with excisional debridement nonhealing infected wound and complex secondary wound closure and revision right breast reconstruction with excision acellular dermal matrix graft and removal of exposed infected saline tissue soybean specialties cook. Postop healing has been uneventful. On 02/03/19 she continued the breast reconstruction process with delayed right breast reconstruction with placement of submuscular saline tissue soybean specialties cook (350 ml) and injected 50 ml saline into left breast reconstruction tissue soybean specialties cook, (250 ml in a 350 ml soybean specialties cook). Postop healing was uneventful. She presents today for the next stage in the breast reconstruction process which is removal of submuscular saline tissue expanders with replacement cohesive gel implants and placement of acellular dermal matrix graft. She also noticed an erythematous lesion on her left medial chest wall that has been increasing in size over the last several months and has become raised in configuration with irregular borders. PAST MEDICAL HISTORY Abnormal ultrasound of breast Abnormal mammogram Right breast cancer Acquired absence bilateral breasts Disproportion reconstructed breasts Exposed right breast tissue soybean specialties cook PAST SURGICAL HISTORY right breast biopsy hysterectomy injection of 5 cc of Lymphazurin blue and right-sided mastectomy and right-sided sentinel lymph node biopsy by Dr. Michelle and prophylactic mastectomy left breast and immediate bilateral breast reconstruction with placement of submuscular saline tissue expanders (350 ml) and placement Alloderm Select Regenerative Tissue Matrix Graft (132 cm2 for each side) by Dr. Lewis - 10/24/18 Surgical preparation right breast reconstruction with excisional debridement nonhealing infected wound and complex secondary wound closure and revision right breast reconstruction with excision acellular dermal matrix graft and removal of exposed infected saline tissue soybean specialties cook - 12/09/18 Delayed right breast reconstruction with placement of submuscular saline tissue soybean specialties cook (350 ml) and injected 50 ml saline into left breast reconstruction tissue soybean specialties cook, (250 ml in a 350 ml soybean specialties cook) - 02/03/19 ALLERGIES tetracycline METALS Cefadroxil MEDICATIONS NK FAMILY HISTORY Father - Heart disease, Myocardial infarction Mother - Respiratory disease Aunt - Respiratory disease SOCIAL HISTORY Smoking Status: Former smoker Smokeless tobacco user: other Electronic Cigarette Use: with nicotine second hand exposure: No quit status: quit date established alcohol intake: current alcohol intake frequency: a few times a month substance use type: does not use REVIEW OF SYSTEMS General - Denies fever, fatigue, and weight loss. Eyes - Denies cataracts and glaucoma. ENT - Denies nasal congestion and sore throat. Endocrine - Denies excessive thirst and urination. Has heat and cold intolerance. Has diagnosis of right breast cancer from biopsy on 10/11/18. Skin - Denies skin cancer. Has enlarging lesion left medial chest wall. Musculoskeletal - Denies joint pain, joint stiffness, weakness of muscles and joints, back pain, and arthritis. Neuro - Denies headaches. Cardiovascular - Denies chest pain, fatigue, and shortness of breath with exertion. Psych - Denies anxiety and depression. Respiratory - Denies chronic cough and shortness of breath. Patient is a former smoker. Gastrointestinal - Denies nausea, vomiting, diarrhea, and constipation. Hematologic - Denies abnormal bruising and bleeding. Genitourinary - Denies hematuria and urinary frequency. PHYSICAL EXAMINATION General - Alert and Oriented. Her bra size is a B cup before the mastectomies. HEENT - PERRL. EOMI. Throat is clear. Neck - Supple and nontender. No cervical adenopathy. Chest wall - On the left medial chest wall is an erythematous lesion that is nodular. Has irregular borders. Measures 5 mm. No ulceration. Lesion is nontender. Breasts - Bilateral breast incisions are healed. Saline tissue expanders are in place. Breast width is 13 cm bilaterally. No axillary adenopathy. Lungs - Clear to auscultation. Heart - Regular rate and rhythm. Abdomen - Soft and nondistended. Some redundant skin and subcutaneous tissue noted between the umbilicus and pubic area. Extremities - FROM. No axillary adenopathy. Radial pulses are palpable. Neuro - CN II-XII grossly intact. Psych - Normal mood and affect. ASSESSMENT 1. Right breast cancer. 2. Cancer phobia left breast. 3. Acquired absence bilateral breasts. 4. Disproportion reconstructed breasts. 5. Estrogen receptor status positive. 6. Former smoker. 7. Exposed right breast reconstruction tissue soybean specialties cook with subsequent removal. 8. 5 mm erythematous nodular lesion left medial chest wall. PLAN She presents today for the next stage of the breast reconstruction process with removal of the saline tissue expanders with replacement cohesive gel implants and placement of acellular dermal matrix graft. I will go through a separate incision inferiorly and horizontally. This will complete the Tzone mastopexy type incision. Surgery will be done under general anesthesia with a surgical observation overnight stay in the hospital. Drains will be placed for several days (10-14 days) and be maintained on antibiotics until the drain is removed. She will also wear a compression vilma wrap. Any tissue that is removed will be sent to Pathology for analysis to rule out carcinoma. If any abnormal fluid or exudate is seen, then tissue will be sent to Microbiology for culture. A positive culture will necessitate antibiotic therapy. Patient was informed of the risks and complications of the procedure including alternatives to surgery. These were discussed with the patient personally. Patient voices understanding and wishes to proceed. Some of the risks and complications were included in a form from the [employer] [employer]. At the time of the removal of the previously exposed saline tissue soybean specialties cook, a wound culture showed Klebsiella pneumoniae. Will treat the patient perioperatively with Levaquin. She doesn't do well with po Levaquin, so will send the patient home on Augmentin until the drains are removed. Will also excise the lesion left medial chest wall and send it to Pathology for analysis to rule out carcinoma. The biopsy will be done with separate instruments. If carcinoma is present, then further excision will be done with skin flap reconstruction. That reconstruction will be done at a separate time after her breast reconstruction has healed. I don't want to do full thickness excision and reconstruction at the same time as the breast reconstruction in order to not potentially spread cancer cells to the breast reconstruction.
[2019-05-08] VITALS (11 sets, daily range): BP systolic 93–112; BP diastolic 37–70; PULSE 63–97; RESP 14–18; TEMP 36.5–36.8; O2SAT 94–100; BMI 19.8; BMI 18.0
[2019-05-08 06:00] LABS: Bedside Glucose 106 mg/dL (70-110)
[2019-05-08 06:07] LABS: Magnesium 2.2 mg/dL (1.6-2.6)
[2019-05-08] MEDS: Gabapentin 600 MG Tablet PO (06:12)
[2019-05-08] MEDS: Acetaminophen 500 MG Tablet 1000 MG PO ×3 (06:12→23:12)
[2019-05-08] MEDS: Scopolamine 1mg/72hr Patch 1 PATCH TRANSDERM. (06:13)
[2019-05-08] MEDS: Lactated Ringers 1,000 ML 40 ML IV ×3 (06:23→13:00)
[2019-05-08] MEDS: levoFLOXacin IV 500 MG/100 ML BAG 100 MG IV (06:23)
[2019-05-08 07:06] LABS: Magnesium 2.1 mg/dL (1.6-2.6)
--- NOTE | 2019-05-08 07:30 | BRBX_PTH ---
PATIENT: HILDA VILLAVICENCIO LOC: [facility] U#:[id number] AGE/SX: 53/F ROOM: [facility]324 RE05/08/[address]: Dr. Derek Lewis MD : 1965 BED: 1 DIS: 05/10/2019 SPEC #: [id number] RECD: 05/08/19 13:11 STATUS: CHIDI REQ #: [id number] DALE: 05/08/19 07:[address]: Derek Lewis DEPT: SURGICAL PATHOLOGY RECD BY: Travis Quinones ENTERED: 05/08/19 13:21 SP TYPE: BREAST BX OTHR DR: Dr. Dakota Clarke MD No Primary Care Phys Tissues: A - Chest wall, NOS B - Right breast, NOS C - Left breast, NOS Procedures: Surgery Specimen Level IV HEADER OPERATION: Breast reconstruction with excision mastectomy scar defect PRE-OP DIAGNOSIS: Right breast cancer; cancer phobia left breast; disproportion reconstructed breasts; ER positive TISSUE SUBMITTED: A - Lesion left medial chest wall, B - Right breast tissue, C - Left breast tissue MICROSCOPIC DIAGNOSIS A. Left medial chest wall lesion, shave biopsy: Benign adnexal tumor, most consistent with syringocystadenoma papilliferum. See comment. B. Right breast tissue: A piece of skin with underlying tissue with dermal fibrosis, consistent with scar. Focal foreign body giant cell reaction. Negative for malignancy. C. Left breast tissue: A piece of skin with underlying tissue with reactive changes and dense fibrosis. SJ:jose enrique 05/11/19 COMMENT A. The lesion is present at the deep margin of the specimen. Please make reference to previous specimen ([id number]) right breast, mastectomy with diagnosis of invasive ductal carcinoma. Case has been reviewed in consultation with Dr. Dhaliwal who concurs with the above diagnosis. IDC:AM MICROSCOPIC DESCRIPTION Slides are reviewed. GROSS DESCRIPTION A - Received in fixative is one container labeled with the patient's name and designated lesion left medial chest wall. The specimen consists of an irregular piece of wagner-white skin measuring 0.7 x 0.7 x 0.1 cm. The specimen is inked and submitted entirely in one cassette. It will be sectioned at the time of embedding. B - Received in fixative is one container labeled with the patient's name and designated right breast tissue. The specimen consists of a piece of skin with underlying tissue measuring 1.5 x 0.5 cm and up to 0.6 cm in thickness. A central healing scar is noted. The specimen is inked, serially sectioned and submitted entirely in one cassette. C - Received in fixative is one container labeled with the patient's name and designated left breast tissue. The specimen consists of a piece of skin with underlying tissue measuring 8 x 3 cm and up to 1.5 cm in thickness. A central defect is noted measuring 6.5 cm in greatest dimension. Also present is a smaller piece of skin with underlying tissue measuring 2 x 0.2 cm and up to 1 cm in thickness. No mass lesion is identified. Multiple sutures are noted on the skin surface. Retail Team Leader sections are submitted in four cassettes. Cassette 1 contains the smaller piece of tissue, entirely submitted. / Henry 05/08/19 TC:1 CPT: 87527 x3
[2019-05-08] MEDS: Mupirocin Ointment 22gm Tube 1 APPLIC (12:32)
[2019-05-08] MEDS: Silver Nitrate (BKC) 1 EACH (12:33)
--- NOTE | 2019-05-08 13:06 | PCM.OPRPT ---
Report of Operation Date of Procedure: 05/08/19 Pre-Operative Diagnosis: 1. Right breast cancer. 2. Cancer phobia left breast. 3. Acquired absence bilateral breasts. 4. Disproportion reconstructed breasts. 5. Deformity reconstructed breasts. 6. Estrogen receptor status positive. 7. Former smoker. 8. Exposed right breast reconstruction tissue video game tester with subsequent removal. 9. 5 mm erythematous nodular lesion left medial chest wall. Post-Operative Diagnosis: Same. Surgery/Procedure Performed:: 1. Revision left breast reconstruction with excision excess mastectomy skin scar contour deformity. 2. Delayed left breast reconstruction with removal of saline tissue video game tester and multiple capsulotomies with replacement cohesive gel implant (350 ml) and placement of Alloderm Select Restore regenerative tissue matrix graft (327 cm2). 3. Revision right breast reconstruction with excision excess mastectomy skin scar contour deformity. 4. Delayed right breast reconstruction with removal of saline tissue video game tester and multiple capsulotomies with replacement cohesive gel implant (350 ml) and placement of Alloderm Select Restore regenerative tissue matrix graft (327 cm2). 5. Intradermal excision 5 mm erythematous nodular lesion left medial chest wall. Description of Surgical Findings:: 53 year old woman initially presented for evaluation for breast reconstruction after a recent diagnosis of right breast cancer from a biopsy on 10/11/18. Pathology showed invasive ductal carcinoma. ER was positive. SC was positive. HER2/gurpreet was equivocal for overexpression. Her initial mammogram and ultrasound were done on 09/30/18 and suspicious for carcinoma. Because of her fear of developing in the left breast a prophylactic mastectomy was discussed at the time of the mastectomy. On 10/24/18 the patient went to surgery where she underwent injection of 5 cc of Lymphazurin blue and right-sided mastectomy and right-sided sentinel lymph node biopsy by Dr. Michelle and prophylactic mastectomy left breast and immediate bilateral breast reconstruction with placement of submuscular saline tissue expanders (350 ml) and placement Alloderm Select Regenerative Tissue Matrix Graft (132 cm2 for each side) by Dr. Lewis. She did well initially. When we started the saline tissue expansion, she developed some incisional breakdown on the right with exposure of the video game tester. She returned to the operating room on 12/09/18 where she underwent surgical preparation right breast reconstruction with excisional debridement nonhealing infected wound and complex secondary wound closure and revision right breast reconstruction with excision acellular dermal matrix graft and removal of exposed infected saline tissue video game tester. Postop healing has been uneventful. On 02/03/19 she continued the breast reconstruction process with delayed right breast reconstruction with placement of submuscular saline tissue video game tester (350 ml) and injected 50 ml saline into left breast reconstruction tissue video game tester, (250 ml in a 350 ml video game tester). Postop healing was uneventful. She presents today for the next stage in the breast reconstruction process which is removal of submuscular saline tissue expanders with replacement cohesive gel implants and placement of acellular dermal matrix graft. She also noticed an erythematous lesion on her left medial chest wall that has been increasing in size over the last several months and has become raised in configuration with irregular borders. Patient was informed of the risks and complications of the procedure including alternatives to surgery. These were discussed with the patient personally. Patient voices understanding and wishes to proceed. Some of the risks and complications were included in a form from the [employer]. IV Fluids - 2100 ml. Urine Output - 1300 ml. I used Cammal MemoryGel Breast Implant Smooth Round Ultra High Profile, (350 ml on the left). Reference Number - [id number]. Lot Number - [id number]. Serial Number - [id number]. Expiration - March 04, 2024. I used Alloderm Select Restore Regenerative Tissue Matrix Graft, Contour, Perforated, Large, X-Thick, (327 cm2 on the left). Reference Number - [id number]. Lot Number - [id number]. Expiration - November,. I used Vishal absorbable hemostat, (left breast). Reference Number - [id number]. Lot Number - [id number]. Expiration - February 12, 2023. I used Cammal MemoryGel Breast Implant Smooth Round Ultra High Profile, (350 ml on the right). Reference Number - [id number]. Lot Number - [id number]. Serial Number - [id number]. Expiration - March 04, 2024. I used Alloderm Select Restore Regenerative Tissue Matrix Graft, Contour, Perforated, Large, X-Thick, (327 cm2 on the right). Reference Number - [id number]. Lot Number - [id number]. Expiration - November,. I used Vishal absorbable hemostat, (right breast). Reference Number - [id number]. Lot Number - [id number]. Expiration - November 13, 2023. upholstery estimator: Eran Alvarez. Type of Anesthesia:: General Specimen's removed: 1. Left breast tissue to Pathology. 2. Right breast tissue to Pathology. 3. Erythematous nodular lesion left medial chest wall to Pathology. Drains: Cameron x2 (one in each breast). Estimated Blood Loss (mL): 50 ml. Fluids Replaced: 3400 ml (IV Fluids 2100 ml, Urine Output 1300 ml). Description of Procedure: While the patient was in the preop area, markings were made from the sternal midline to the umbilicus. The inframammary folds were marked bilaterally. She was then taken to the OR in supine position and placed under general anethesia. SCD's were placed for DVT prophylaxis. Perioperative antibiotics were given intravenously. A bradford catheter was placed. Her breasts were prepped and draped in the usual fashion. Ioban draping was also used. I first infiltrated the lesion left medial chest wall with xylocaine with epinephrine. Using a scalpel, an intradermal excision was done and the lesion was sent to Pathology for analysis to rule out carcinoma. The scalpel was then taken off the table. Using xylocaine with epinephrine, the horizontal scar on the right breast and a horizontal marking on the left breast were infiltrated. After waiting 5 minutes for the anesthetic to take effect, I first worked on the right breast and then the left breast. An incision was made through the previous horizontal scar down through the subcutaneous tissue until the capsule was seen. A capsulotomy was performed and the smooth saline tissue video game tester was removed. No abnormal fluid collection was seen in the breast pocket. The capsule was smooth. Multiple capsulotomies were made to enlarge the breast pocket and make it a little more pliable for the implant. There was a mastectomy scar contour deformity superiorly in the area of the biopsy scar. An elliptical excision was done into the subcutaneous tissue. The tissue was sent to Pathology for analysis to rule out carcinoma. Hemostasis was obtained with electrocautery. The wound was closed in a layered fashion with 3-0 Monocryl interrupted sutures for the deep dermis and subcutaneous tissue. The skin was approximated with 4-0 Prolene simple interrupted sutures. I then placed a 295 ml ultra high profile sizer into the breast pocket and closed the wound temporarily with surgical clips. The sizer was too small. I then proceeded with a 320 ml sizer and then ultimately a 350 ultra high profile sizer. A horizontal incision was then made on the left breast down through the subcutaneous tissue until the capsule was seen. A capsulotomy was performed and the smooth saline tissue video game tester was removed. No abnormal fluid collection was seen in the breast pocket. The capsule was smooth. Multiple capsulotomies were made to enlarge the breast pocket and make it a little more pliable for the implant. I then placed a 350 ultra high profile sizer into the breast pocket and closed the wound temporarily with surgical clips. Patient was placed in the sitting position and good shape and contour was noted in the breasts. The left breast pocket was a little looser as compared to the right breast. This is understandable as more skin was excised from the right breast at the time of the mastectomy as this was the cancer side. Therefore an additional wedge of tissue was excised from the horizontal incision and sent to Pathology for analysis to rule out carcinoma. I then closed the wound temporarily with surgical clips. This tightened the pocket a little and increased the symmetry between the breasts reconstruction. The sizers were removed. The breast wounds were irrigated with Irrisept 0.05% chlorhexidine solution followed by saline irrigation. Hemostasis was obtained with electrocautery. A size 15 Cameron drain was placed in each breast pocket through separate stab incisions laterally and secured to the skin with 3-0 Nylon suture. The breast pockets were sprayed with Vishal absorbable hemostat to minimize seroma formation postoperatively. I used one vial in each breast. Prior to handling the cohesive gel implants, our gloves were changed. I then took both cohesive gel implants (Cammal ultra high profile, 350 ml) and placed them in sterile Betadine on the back table and wrapped the Alloderm Select Restore acellular dermal matrix graft, contour large perforated, X-thick, with 3-0 Vicryl suture. Care was taken to place a malleable over the implant during the suturing of the graft to protect the implant from injury. I then placed the cohesive gel implants wrapped in the acellular dermal matrix graft into the breast pockets. I secured the lateral edge and inferior edge of the graft to the chest wall with 3-0 Vicryl suture. Because there was some redundancy of the graft in this area, it was easy to protect the implant away from the placement of these sutures. The breast wounds were then closed with 3-0 Monocryl interrupted sutures for the deep dermis and subcutaneous tissue. A malleable was used to protect the implant during this portion of the wound closure. The skin was approximated with 4-0 Prolene vertical mattress interrupted sutures and simple interrupted sutures. This was followed by Histoacryl skin tissue adhesive. For the left medial chest wall wound, I used Silver nitrate for chemical cauterization. This was followed by antibiotic ointment and an Op-site dressing. A Kerlix gauze dressing was applied to the breasts followed by a surgical bra. This was followed with a compression vilma wrap as well. There was no clinical evidence of hematoma. No vascular compromise was noted on the breast skin flaps. Patient tolerated the procedure well and was sent to PACU in satisfactory condition. She will be sent upstairs for postop care. The drains will be removed in 10-14 days. She will be discharged on antibiotics and pain medication and Valium for spasm. She will keep her head elevated during the initial postoperative period. Grafts/Implants Used: Cammal MemoryGel Implants x2, Alloderm Regenerative Tissue Graft x2 - Complications None. - Admit VTE Documentation VTE Present on Admission: No VTE Mechan Device Prophylaxis: SCD's VTE Pharm Prophylaxis ordered?: Yes Code Visit Surgery Charges CPT - 93055 ICD-10 - C50.911, F40.298, Z90.13, N65.0, N65.1, Z17.0, T85.49xA, Z87.891 82413-80 C50.911, F40.298, Z90.13, N65.0, N65.1, Z17.0, T85.49xA, Z87.891 68105 C50.911, F40.298, Z90.13, N65.0, N65.1, Z17.0, T85.49xA, Z87.891 27373-98 C50.911, F40.298, Z90.13, N65.0, N65.1, Z17.0, T85.49xA, Z87.891 [id number] C50.911, F40.298, Z90.13, N65.0, N65.1, Z17.0, T85.49xA, Z87.891 99297 D49.2, C50.911
[2019-05-08] MEDS: Gabapentin 100 MG Capsule 200 MG PO (17:42)
[2019-05-08] MEDS: Ensure Surgery 237 ML LIQUID PO (17:43)
[2019-05-08] MEDS: Anastrozole 1 MG Tablet PO (22:04)
[2019-05-08] MEDS: Docusate Sodium 100 MG Capsule PO (22:04)
[2019-05-08] MEDS: oxyCODONE 5 MG Tablet PO (22:10)
[2019-05-09] VITALS (8 sets, daily range): BP systolic 87–107; BP diastolic 44–57; PULSE 60–80; RESP 16–20; TEMP 36.6–37.3; O2SAT 95–98
[2019-05-09] MEDS: Acetaminophen 500 MG Tablet 1000 MG PO ×3 (05:18→17:51)
[2019-05-09 06:47] LABS: Hemoglobin 11.4 g/dL (12.0-15.0); Mean Corp Hgb Conc 32.6 g/dL (32-36); Mean Corpuscular Hgb 31.1 pg (27.0-32.0); Mean Corpuscular Volume 95.6 fL (81-99); Mean Platelet Vol. 9.8 fl (6.2-12.0); Platelet Count 219 K/mm3 (150-450); RBC Distribution Width CV 13.3 % (11.6-14.6); RBC Distribution Width SD 47.4 fl (35.1-43.9); Red Blood Count 3.66 M/mm3 (4.2-5.4); White Blood Count 10.3 K/mm3 (4.4-11.0)
[2019-05-09 07:20] LABS: Anion Gap 6 (5-15); BUN 10 mg/dL (7-18); BUN/Creat Ratio 13.2 RATIO (10-20); Chloride 109 mmol/L (98-107); Creatinine, Serum 0.76 mg/dL (0.55-1.02); EST Glomerular Filtration Rate 85 mL/min (>60); Est Glom Filt Rate - Afr Amer 103 mL/min (>60); Estimated Creatinine Clearance 63.96 ml/min; Glucose 87 mg/dL (74-106); Potassium 4.1 mmol/L (3.5-5.1); Prealbumin 21.6 mg/dL (20.0-40.0); Sodium Level 141 mmol/L (136-145)
[2019-05-09] MEDS: Gabapentin 100 MG Capsule 200 MG PO ×3 (08:16→17:18)
[2019-05-09] MEDS: Docusate Sodium 100 MG Capsule PO ×2 (08:16→22:10)
[2019-05-09] MEDS: Enoxaparin 40 MG/0.4 ML Syringe SC (08:16)
[2019-05-09] MEDS: Calcium (Elemental) 500 MG Tablet PO (08:17)
[2019-05-09] MEDS: Ensure Surgery 237 ML LIQUID PO ×3 (08:19→17:18)
[2019-05-09] MEDS: 0.9% Saline Lock 10 ML Syringe IV ×3 (13:55→22:21)
--- NOTE | 2019-05-09 14:15 | PN.SURG_ITS ---
Subjective: Postop #1 Patient is resting comfortably. - Physical Exam Vitals/I&O's: Vital Signs Temp Pulse Resp BP Pulse Ox 98 F 72 16 103/57 L 97 05/09/19 12:39 05/09/19 12:39 05/09/19 12:39 05/09/19 12:39 05/09/19 13:58 Oxygen Flow Rate (L/min) 6 Oxygen Delivery Method Room Air Weight: 102 lb Body Mass Index (BMI) 18.0 Intake and Output for Last 24 Hours 05/07/19 05/08/19 05/09/19 23:59 23:59 23:59 Intake Total 3206.84 / 3206.84 50 / 50 Output Total 3180 / 3180 635 / 635 Balance 26.84 / 26.84 -585 / -585 Drainage 60 ml yesterday, 60 ml today. General: Alert, Oriented x3 HEENT: PERRLA, EOMI Oral: Moist Mucosa Neck: Supple Abdomen: Soft, Non-Distended Skin: Incision - breast incisions are dry and intact. breasts are soft and symmetrical. no vascular compromise noted on the breast skin flaps. no clinical evidence of hematoma. Neurological: Cranial nerves II-XII grossly intact Psych/Mental Status: Normal Affect, Appropriate Laboratory Results 05/09/19 06:34: Sodium 141, Potassium 4.1, Chloride 109 H, Carbon Dioxide 26.0, Anion Gap 6, BUN 10, Creatinine 0.76, Estim Creat Clear Calc 63.96, Est GFR (MDRD) Af Amer 103, Est GFR (MDRD) Non-Af 85, BUN/Creatinine Ratio 13.2, Glucose 87, Calcium 9.0, Prealbumin 21.6 05/09/19 06:34: WBC 10.3, RBC 3.66 L, Hgb 11.4 L, Hct 35.0 L, MCV 95.6, MCH 31.1, MCHC 32.6, RDW Std Deviation 47.4 H, RDW Coeff of Bernarda 13.3, Plt Count 219, MPV 9.8 Current Medications Acetaminophen (Tylenol) 1,000 mg PO Q6 [facility] Last Admin: 05/09/19 12:27 Dose: 1,000 mg Documented by: Anastrozole (Arimidex) 1 mg PO QHS [facility] Last Admin: 05/08/19 22:04 Dose: 1 mg Documented by: Calcium Carbonate (Os-Jose Manuel 500) 500 mg PO DAILY@0800 [facility] Last Admin: 05/09/19 08:17 Dose: 500 mg Documented by: Cholecalciferol (Vitamin D (25mcg)) 2,000 unit PO BID [facility] Last Admin: 05/09/19 08:16 Dose: 2,000 unit Documented by: Diazepam (Valium) 5 mg PO 4X/DAY PRN PRN PRN Reason: SPASMS Docusate Sodium (Colace) 100 mg PO BID [facility] Last Admin: 05/09/19 08:16 Dose: 100 mg Documented by: Enoxaparin Sodium (Lovenox) 40 mg SC DAILY [facility] Last Admin: 05/09/19 08:16 Dose: 40 mg Documented by: Enteral Nutritional Formula (Ensure Surgery) 237 ml PO TIDCM [facility] Last Admin: 05/09/19 12:27 Dose: 237 ml Documented by: Gabapentin (Neurontin) 200 mg PO TIDCM [facility] Last Admin: 05/09/19 12:27 Dose: 200 mg Documented by: Hydromorphone HCl (Dilaudid Inj) 0.5 - 1 mg IV Q3H PRN PRN PRN Reason: Pain Score 6-10/10 Ampicillin Sodium/Sulbactam Sodium 1,500 mg/ Sodium Chloride 50 mls @ 100 mls/hr IV Q8 [facility] Last Admin: 05/09/19 13:55 Dose: 100 mls/hr Documented by: Lactated Ringer's () 1,000 mls @ 60 mls/hr IV .[id number] [facility] Last Admin: 05/09/19 04:25 Dose: Not Given Documented by: Sodium Chloride () 250 mls @ 15 mls/hr IV .[id number] PRN PRN Reason: Saline Flush Sodium Chloride () 250 mls @ 15 mls/hr IV .[id number] PRN PRN Reason: Additional IVPB Infusion Insulin Human Lispro (Humalog Kwikpen (Bkc)) 1 - 6 unit SC Q4H PRN PRN; Protocol PRN Reason: BG>/= 180, SEE PROTOCOL Magnesium Oxide (Mag-Ox 400) 400 mg PO BID PRN PRN PRN Reason: Constipation Ondansetron HCl (Zofran Odt) 4 mg PO Q6H PRN PRN PRN Reason: NAUSEA Oxycodone HCl (Oxyir) 5 - 10 mg PO Q4H PRN PRN PRN Reason: Pain Score 4-10/10 Last Admin: 05/08/19 22:10 Dose: 5 mg Documented by: Sodium Chloride () 10 - 40 ml IV UD PRN PRN Reason: SALINE FLUSH Last Admin: 05/09/19 13:55 Dose: 10 ml Documented by: Medical Necessity - Tobacco Use Smoking Status: Former smoker Tobacco Use: Non-smoker Assessment/Plan All Active Problems (Last Reviewed 05/02/19 @ 22:[address] Derek Lewis MD) Exposed breast implant (Resolved) Nonhealing surgical wound (Resolved) Disproportion of reconstructed breast (Acute) Acquired absence of bilateral breasts and nipples (Acute) Breast cancer, right (Acute) Hx of right breast biopsy (Acute) Hx of hysterectomy (Acute) Abnormal ultrasound of breast (Acute) Abnormal mammogram (Acute) 1. Right breast cancer. 2. Cancer phobia left breast. 3. Acquired absence bilateral breasts. 4. Disproportion reconstructed breasts. 5. Deformity reconstructed breasts. 6. Estrogen receptor status positive. 7. Former smoker. 8. Exposed right breast reconstruction tissue sheet rocker with subsequent removal. 9. 5 mm erythematous nodular lesion left medial chest wall. 10. s/p revision left breast reconstruction with excision excess mastectomy skin scar contour deformity and delayed left breast reconstruction with removal of saline tissue sheet rocker and multiple capsulotomies with replacement cohesive gel implant (350 ml) and placement of Alloderm Select Restore regenerative tissue matrix graft (327 cm2) and revision right breast reconstruction with excision excess mastectomy skin scar contour deformity and delayed right breast reconstruction with removal of saline tissue sheet rocker and multiple capsulotomies with replacement cohesive gel implant (350 ml) and placement of Alloderm Select Restore regenerative tissue matrix graft (327 cm2) and intradermal excision 5 mm erythematous nodular lesion left medial chest wall. Patient complains of incisional pain. She is a little unsteady on her feet. Breasts are soft and symmetrical without evidence of hematoma. Incisions are intact. Encourage ambulation with assist. Pathology is pending. Del Real catheter removed. She is voiding without difficulty. Continue Unasyn. Will discharge on Augmentin until the drains are removed. Keep head elevated. Continue lifting restriction. Anticipate discharge tomorrow when she is more steady on her feet with ambulation and tolerating po analgesia.
[2019-05-09] MEDS: Anastrozole 1 MG Tablet PO (22:09)
[2019-05-10 03:26] VITALS: BP 99/55; PULSE 72; RESP 20; TEMP 37.1; O2SAT 96
[2019-05-10 03:31] VITALS: RESP 20
[2019-05-10] MEDS: 0.9% Saline Lock 10 ML Syringe IV (05:55)
[2019-05-10] MEDS: Acetaminophen 500 MG Tablet 1000 MG PO ×2 (07:27)
[2019-05-10 07:28] VITALS: BP 95/57; PULSE 76; RESP 16; TEMP 36.8; O2SAT 95
[2019-05-10 07:31] VITALS: O2SAT 93
[2019-05-10] MEDS: Gabapentin 100 MG Capsule 200 MG PO ×2 (08:20→11:21)
[2019-05-10] MEDS: Calcium (Elemental) 500 MG Tablet PO (08:21)
[2019-05-10] MEDS: Enoxaparin 40 MG/0.4 ML Syringe SC (08:21)
[2019-05-10] MEDS: Docusate Sodium 100 MG Capsule PO (08:21)
[2019-05-10] MEDS: Ensure Surgery 237 ML LIQUID PO (08:23)
--- NOTE | 2019-05-10 11:18 | PCM.PN.SRG ---
Subjective: Postop #2 Patient is resting comfortably. - Physical Exam Vitals/I&O's: Vital Signs Temp Pulse Resp BP Pulse Ox 98.2 F 76 16 95/57 L 93 05/10/19 07:28 05/10/19 07:28 05/10/19 07:28 05/10/19 07:28 05/10/19 07:31 Oxygen Flow Rate (L/min) 6 Oxygen Delivery Method Room Air Weight: 102 lb Body Mass Index (BMI) 18.0 Intake and Output for Last 24 Hours 05/08/19 05/09/19 05/10/19 23:59 23:59 23:59 Intake Total 3206.84 / 3206.84 1200 / 1200 450 / 450 Output Total 3180 / 3180 1095 / 1095 1725 / 1725 Balance 26.84 / 26.84 105 / 105 -1275 / -1275 Drainage 120 ml yesterday, 25 ml today. General: Alert, Oriented x3 HEENT: PERRLA, EOMI Oral: Moist Mucosa Neck: Supple Abdomen: Soft, Non-Distended Skin: Ulcer/ Wound - Superomedial aspect left breast wound dressing is dry., Incision - breast incisions are dry and intact. breasts are soft and symmetrical. no vascular compromise noted on the breast skin flaps. no clinical evidence of hematoma. Current Medications Acetaminophen (Tylenol) 1,000 mg PO Q6 [facility] Last Admin: 05/10/19 07:27 Dose: 1,000 mg Documented by: Anastrozole (Arimidex) 1 mg PO QHS [facility] Last Admin: 05/09/19 22:09 Dose: 1 mg Documented by: Calcium Carbonate (Os-Jose Manuel 500) 500 mg PO DAILY@0800 [facility] Last Admin: 05/10/19 08:21 Dose: 500 mg Documented by: Cholecalciferol (Vitamin D (25mcg)) 2,000 unit PO BID [facility] Last Admin: 05/10/19 08:21 Dose: 2,000 unit Documented by: Diazepam (Valium) 5 mg PO 4X/DAY PRN PRN PRN Reason: SPASMS Docusate Sodium (Colace) 100 mg PO BID [facility] Last Admin: 05/10/19 08:21 Dose: 100 mg Documented by: Enoxaparin Sodium (Lovenox) 40 mg SC DAILY [facility] Last Admin: 02/23/20 08:21 Dose: 40 mg Documented by: Enteral Nutritional Formula (Ensure Surgery) 237 ml PO TIDCM [facility] Last Admin: 05/10/19 08:23 Dose: 237 ml Documented by: Gabapentin (Neurontin) 200 mg PO TIDCM [facility] Last Admin: 05/10/19 08:20 Dose: 200 mg Documented by: Hydromorphone HCl (Dilaudid Inj) 0.5 - 1 mg IV Q3H PRN PRN PRN Reason: Pain Score 6-10/10 Ampicillin Sodium/Sulbactam Sodium 1,500 mg/ Sodium Chloride 50 mls @ 100 mls/hr IV Q8 [facility] Last Infusion: 05/10/19 07:28 Dose: Infused Documented by: Sodium Chloride () 250 mls @ 15 mls/hr IV .[id number] PRN PRN Reason: Saline Flush Sodium Chloride () 250 mls @ 15 mls/hr IV .[id number] PRN PRN Reason: Additional IVPB Infusion Insulin Human Lispro (Humalog Kwikpen (Bkc)) 1 - 6 unit SC Q4H PRN PRN; Protocol PRN Reason: BG>/= 180, SEE PROTOCOL Magnesium Oxide (Mag-Ox 400) 400 mg PO BID PRN PRN PRN Reason: Constipation Ondansetron HCl (Zofran Odt) 4 mg PO Q6H PRN PRN PRN Reason: NAUSEA Oxycodone HCl (Oxyir) 5 - 10 mg PO Q4H PRN PRN PRN Reason: Pain Score 4-10/10 Last Admin: 05/08/19 22:10 Dose: 5 mg Documented by: Sodium Chloride () 10 - 40 ml IV UD PRN PRN Reason: SALINE FLUSH Last Admin: 05/10/19 05:55 Dose: 20 ml Documented by: Medical Necessity - Tobacco Use Smoking Status: Former smoker Tobacco Use: Non-smoker Assessment/Plan All Active Problems (Last Reviewed 05/02/19 @ 22:[address] Derek Lewis MD) Exposed breast implant (Resolved) Nonhealing surgical wound (Resolved) Disproportion of reconstructed breast (Acute) Acquired absence of bilateral breasts and nipples (Acute) Breast cancer, right (Acute) Hx of right breast biopsy (Acute) Hx of hysterectomy (Acute) Abnormal ultrasound of breast (Acute) Abnormal mammogram (Acute) 1. Right breast cancer. 2. Cancer phobia left breast. 3. Acquired absence bilateral breasts. 4. Disproportion reconstructed breasts. 5. Deformity reconstructed breasts. 6. Estrogen receptor status positive. 7. Former smoker. 8. Exposed right breast reconstruction tissue operations plant attendant with subsequent removal. 9. 5 mm erythematous nodular lesion left medial chest wall. 10. s/p revision left breast reconstruction with excision excess mastectomy skin scar contour deformity and delayed left breast reconstruction with removal of saline tissue operations plant attendant and multiple capsulotomies with replacement cohesive gel implant (350 ml) and placement of Alloderm Select Restore regenerative tissue matrix graft (327 cm2) and revision right breast reconstruction with excision excess mastectomy skin scar contour deformity and delayed right breast reconstruction with removal of saline tissue operations plant attendant and multiple capsulotomies with replacement cohesive gel implant (350 ml) and placement of Alloderm Select Restore regenerative tissue matrix graft (327 cm2) and intradermal excision 5 mm erythematous nodular lesion left medial chest wall. Patient has some incisional pain and is tolerating po analgesia. She is more steady on her feet with ambulation. Breasts are soft and symmetrical without evidence of hematoma. Incisions are intact. Superomedial aspect left breast wound dressing is dry. Encourage ambulation with assist. Pathology is pending. Del Real catheter removed. She is voiding without difficulty. Will discharge on Augmentin until the drains are removed. Keep head elevated. Continue lifting restriction. Discharge home today. Followup office one week. Wrote script for Augmentin. Wrote scripts for Percocet for pain (40 tabs) and for Colace for constipation (60 tabs). She has Valium at home for spasm and anti-nausea medication at home.
[2019-05-10 11:22] VITALS: BP 90/43; PULSE 72; RESP 16; TEMP 36.8; O2SAT 96
--- NOTE | 2019-05-10 11:23 | DCINST_ITS ---
You will use the following diet at home:: No restrictions Discharge Activity: May not drive while taking narcotic pain medications., May Not Shower - until the drains are removed., - - keep head elevated. no heavy lifting. May shower in (days): 14 - after the drains are removed. May resume sexual activity in: 10-14 days Weight Bearing Status: Weight bearing as tolerated Lifting Restrictions: 20 lbs. Keep extremity elevated above heart level: - - keep head elevated. Call your doctor if your incision/area has: Continuous Slow Oozing, Sudden Increased Bleeding, Increased Pain/ Swelling, Increased Redness, Foul Smelling Discharge, Swelling at the incision site Call your doctor if you observe: Fever of 101 or Higher, Coldness, Increased Pain, Shortness of breath, Chest pain, Calf discomfort, Uncontrolled pain Suture Line Care: - - apply antibiotic ointment to suture line daily superolateral aspect right breast after Op site dressing removed and superomedial aspect left breast biopsy site daily after the Op site dressing removed. Apply dry dressing pads to horizontal incisions inferior breasts daily. Do not need to apply antibiotic ointment to the horizontal incisions. Change Dressing in (Days):: 1 - dry dressing pads daily Remove Dressing in (days):: 2 - may remove the Op site dressings superolateral aspect right breast and superomedial aspect left breast Cleanse incision/area with: - - may get the incisions wet in the shower after the drains are removed. Drain: Suction - amita drain x2 to bulb suction. empty and record output daily. Allergies/Adverse Reactions: Allergies tetracycline Adverse Reaction (Mild, Verified 05/01/19 08:53) GI Upset cefadroxil [From Duricef] Adverse Reaction (Verified 05/01/19 08:53) gi upset METALS Adverse Reaction (Severe, Uncoded 05/01/19 08:53) METALS WITH EXCEPTION OF TITANIUM DETERIORATE levaquin Adverse Reaction (Intermediate, Uncoded 05/01/19 08:53) upset stomach Medications to take at Discharge Calcium (Elemental) [Os-Jose Manuel 500] 500 mg PO DAILY 12/08/18 Cholecalciferol (Vitamin D3) [Vitamin D3] 2,000 unit PO BID 01/29/19 anastrozole 1 mg tablet 1 mg PO QHS 03/12/19 Leuprolide Acetate [Lupron Depot (Lupaneta)] 11.25 mg IM .Q3M 05/01/19 Amoxicillin/Potassium Clav [Amox-Clav 500-125 mg Tablet] 1 ea PO BID #28 tab 05/10/19 Docusate Sodium [Colace] 100 mg PO BID #60 cap 05/10/19 Oxycodone HCl/Acetaminophen [Percocet 5/325] 1 tablet PO Q4H PRN PRN 7 Days #40 tablet 05/10/19 The following prescriptions were given: Amoxicillin/Potassium Clav [Amox-Clav 500-125 mg Tablet] 1 ea PO BID #28 tab Transmission Status: [facility] to [facility] Docusate Sodium [Colace] 100 mg PO BID #60 cap Transmission Status: Pending to [facility] [id number] Oxycodone HCl/Acetaminophen [Percocet 5/325] 1 tablet PO Q4H PRN PRN 7 Days #40 tablet PRN Reason: Pain Score 4-5/10 Transmission Status: Received by [facility] Orders to be completed after discharge: 12 Lead EKG [[facility]] Time Frame: 05/01/19, Facility: [facility], Location: Cardiovascular Services CBC-Complete Blood Cnt No Diff Time Frame: 05/01/19, Facility: [facility], Location: Laboratory Primary Care Physician: Care Physician,No Primary [Primary Care Provider] - Test Results: Test results from this visit will be discussed in further detail at your follow- up appointment, if applicable. Please Follow Up With: Derek Lewis MD When: one week. call [phone] for appt. Proposed Discharge Date: 05/10/19
== END 2019-05-10 11:45 | disposition home or self-care (01) ==
LOC: SDC 13:29 → MS3 13:29
PROVIDERS: Anesthesiology; Admitting Provider Surgery; Referring Provider Surgery; Visit Provider Surgery
PROC: (CPT 11300; principal; 2019-05-08 07:10)
DX: C50.911 Malignant neoplasm of unspecified site of right female breast (principal); F45.29 Other hypochondriacal disorders; D49.2 Neoplasm of unspecified behavior of bone, soft tissue, and skin; N65.1 Disproportion of reconstructed breast; Z17.0 Estrogen receptor positive status [ER+]; Z87.891 Personal history of nicotine dependence; Z79.899 Other long term (current) drug therapy
CPT/HCPCS: 00402; 11300; 11970; 15777; 19380; 36415; 80048; 82962; 83735; 84134; 85027; 88305; 93005; 96365; 96366; 96372; 99218; 99251; J7120; A4216; G0378; G0379; G0463; J2405; Q9968

== ENCOUNTER 2019-09-03 05:40 | Day surgery (SDC) | payer BC, SELFPAY ==
[2019-08-27 15:30] VITALS: BMI 18.0
--- NOTE | 2019-09-02 21:34 | PCM.HP.BLA ---
History and Physical Date of Admission: 09/03/19 HISTORY OF PRESENT ILLNESS 53 year old woman initially presented for evaluation for breast reconstruction after a recent diagnosis of right breast cancer from a biopsy on 10/11/18. Pathology showed invasive ductal carcinoma. ER was positive. WA was positive. HER2/gurpreet was equivocal for overexpression. Her initial mammogram and ultrasound were done on 09/30/18 and suspicious for carcinoma. Because of her fear of developing in the left breast a prophylactic mastectomy was discussed at the time of the mastectomy. On 10/24/18 the patient went to surgery where she underwent injection of 5 cc of Lymphazurin blue and right-sided mastectomy and right-sided sentinel lymph node biopsy by Dr. Michelle and prophylactic mastectomy left breast and immediate bilateral breast reconstruction with placement of submuscular saline tissue expanders (350 ml) and placement Alloderm Select Regenerative Tissue Matrix Graft (132 cm2 for each side) by Dr. Lewis. She did well initially. When we started the saline tissue expansion, she developed some incisional breakdown on the right with exposure of the emergency medicine. She returned to the operating room on 12/09/18 where she underwent surgical preparation right breast reconstruction with excisional debridement nonhealing infected wound and complex secondary wound closure and revision right breast reconstruction with excision acellular dermal matrix graft and removal of exposed infected saline tissue emergency medicine. Postop healing has been uneventful. On 02/03/19 she continued the breast reconstruction process with delayed right breast reconstruction with placement of submuscular saline tissue emergency medicine (350 ml) and injected 50 ml saline into left breast reconstruction tissue emergency medicine, (250 ml in a 350 ml emergency medicine). Postop healing was uneventful. On 05/08/19 she continued the breast reconstruction process with revision left breast reconstruction with excision excess mastectomy skin scar contour deformitymand delayed left breast reconstruction with removal of saline tissue emergency medicine and multiple capsulotomies with replacement cohesive gel implant (350 ml) and placement of Alloderm Select Restore regenerative tissue matrix graft (327 cm2) and revision right breast reconstruction with excision excess mastectomy skin scar contour deformity and delayed right breast reconstruction with removal of saline tissue emergency medicine and multiple capsulotomies with replacement cohesive gel implant (350 ml) and placement of Alloderm Select Restore regenerative tissue matrix graft (327 cm2) and intradermal excision 5 mm erythematous nodular lesion left medial chest wall. She did well initially and then developed some wound separation on the left breast reconstruction with exposure of the Alloderm. Over time the Alloderm and exposure of the implant was seen. There is also a small incisional separation on the right breast reconstruction with a small amount of exposed Alloderm and no implant exposure seen. It was recommended to the patient to proceed with debridement of the nonhealing ulcer left breast reconstruction with removal of the exposed implant with replacement implant and also debride the small separation on the right breast reconstruction including the small amount of exposed Alloderm with secondary wound closure. 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 Michelle and prophylactic mastectomy left breast and immediate bilateral breast reconstruction with placement of submuscular saline tissue expanders (350 ml) and placement Alloderm Select Regenerative Tissue Matrix Graft (132 cm2 for each side) by Dr. Lewis - 10/24/18 Surgical preparation right breast reconstruction with excisional debridement nonhealing infected wound and complex secondary wound closure and revision right breast reconstruction with excision acellular dermal matrix graft and removal of exposed infected saline tissue emergency medicine - 12/09/18 Delayed right breast reconstruction with placement of submuscular saline tissue emergency medicine (350 ml) and injected 50 ml saline into left breast reconstruction tissue emergency medicine, (250 ml in a 350 ml emergency medicine) - 02/03/19 Revision left breast reconstruction with excision excess mastectomy skin scar contour deformity and delayed left breast reconstruction with removal of saline tissue emergency medicine and multiple capsulotomies with replacement cohesive gel implant (350 ml) and placement of Alloderm Select Restore regenerative tissue matrix graft (327 cm2) and revision right breast reconstruction with excision excess mastectomy skin scar contour deformity and delayed right breast reconstruction with removal of saline tissue emergency medicine and multiple capsulotomies with replacement cohesive gel implant (350 ml) and placement of Alloderm Select Restore regenerative tissue matrix graft (327 cm2) and intradermal excision 5 mm erythematous nodular lesion left medial chest wall - 05/08/19 ALLERGIES tetracycline METALS Cefadroxil MEDICATIONS Calcium (Elemental) [Os-Jose Manuel 500] Cholecalciferol (Vitamin D3) [Vitamin D3] anastrozole Leuprolide Acetate [Lupron Depot (Lupaneta)] FAMILY HISTORY Father - Heart disease, Myocardial infarction Mother - Respiratory disease Aunt - Respiratory disease SOCIAL HISTORY Smoking Status: Former smoker Smokeless tobacco user: other Electronic Cigarette Use: with nicotine second hand exposure: No quit status: quit date established alcohol intake: current alcohol intake frequency: a few times a month substance use type: does not use REVIEW OF SYSTEMS General - Denies fever, fatigue, and weight loss. Eyes - Denies cataracts and glaucoma. ENT - Denies nasal congestion and sore throat. Endocrine - Denies excessive thirst and urination. Has heat and cold intolerance. Has diagnosis of right breast cancer from biopsy on 10/11/18. Skin - Denies skin cancer. Has enlarging lesion left medial chest wall. Musculoskeletal - Denies joint pain, joint stiffness, weakness of muscles and joints, back pain, and arthritis. Neuro - Denies headaches. Cardiovascular - Denies chest pain, fatigue, and shortness of breath with exertion. Psych - Denies anxiety and depression. Respiratory - Denies chronic cough and shortness of breath. Patient is a former smoker. Gastrointestinal - Denies nausea, vomiting, diarrhea, and constipation. Hematologic - Denies abnormal bruising and bleeding. Genitourinary - Denies hematuria and urinary frequency. PHYSICAL EXAMINATION General - Alert and Oriented. Her bra size is a B cup before the mastectomies. HEENT - PERRL. EOMI. Throat is clear. Neck - Supple and nontender. No cervical adenopathy. Chest wall - On the left medial chest wall superomedial to the breast reconstruction is a healed scar from recent intradermal excision of the syringocystadenoma papilliferum. Breasts - Breasts are soft and symmetrical. On the left breast reconstruction is a nonhealing ulcer with exposure of the underlying implant. Measures 3 cm. No drainage. No redness. No evidence of acute infection. On the right breast reconstruction is a small area of nonhealing with exposure of the Alloderm and no exposure of the underlying implant. Measures 5 mm. Breast width is 13 cm bilaterally. No axillary adenopathy. Lungs - Clear to auscultation. Heart - Regular rate and rhythm. Abdomen - Soft and nondistended. Some redundant skin and subcutaneous tissue noted between the umbilicus and pubic area. Extremities - FROM. No axillary adenopathy. Radial pulses are palpable. Neuro - CN II-XII grossly intact. Psych - Normal mood and affect. ASSESSMENT 1. Right breast cancer. 2. Nonhealing ulcer left breast reconstruction. 3. Exposed breast implant left breast reconstruction. 4. Small nonhealing ulcer right breast reconstruction. 5. Cancer phobia left breast. 6. Acquired absence bilateral breasts. 7. Disproportion reconstructed breasts. 8. Estrogen receptor status positive. 9. Former smoker. PLAN With more of the implant being exposed, we will stop observation and wound care and proceed with surgical revision. Recommend excisional debridement of the left breast ulcer and remove the exposed implant with replacement implant, possibly a slightly smaller one. By being exposed the implant is now weaker than normal and needs to be replaced. There is good quality skin that can be reapproximated with an implant. If pus is found at surgery, the replacement implant would be done at a later time. At this time, there is no clinical evidence of pus. If a smaller implant is needed on the left then a replacement smaller implant can also be placed in the right breast reconstruction for symmetry purposes. However, the patient does not want a replacement implant on the right for symmetry if a smaller implant is needed back on the left breast. She is ok with a little asymmetry if a slightly smaller implant is needed on the left. A revision will also need to be done on the right breast reconstruction as well as there is a small area of exposed biologic graft. Tissue that is removed at surgery will be sent to Pathology for analysis to rule out carcinoma and to Microbiology for culture. A positive culture will necessitate antibiotic therapy. Surgery will be done under general anesthesia on an outpatient basis. Will schedule the surgery for early next week. Drains may be needed postoperatively. Patient was informed of the risks and complications of the procedure including alternatives to surgery. These were discussed with the patient personally. Patient voices understanding and wishes to proceed. Some of the risks and complications were included in a form from the [employer]. Also at some point in the future after her breast reconstruction has healed, it was recommended to the patient to have the syringocystadenoma excised in a full thickness fashion and sent to Pathology for analysis to rule out carcinoma Procedure Criteria Procedure Type: Essential Procedure Essential: Yes Criteria Statement: On 06/02/2019 the [facility] ([facility]) Public Order signed by [facility] Director Rabia Rider M.D., regarding the Management of Non-Essential Surgeries and Procedures for the purpose of preserving Personal Protective Equipment (PPE) and critical hospital capacity and resources within [place] went into effect as of 06/03/2019 at 5:00PM. According to the [facility] Public Order: This action will remain in full force and effect until the State of Emergency declared by the Governor no longer exists or the Director of the [facility] rescinds or modifies this Order. This [facility] order stated all non-essential or elective surgeries and procedures that utilize PPE should be delayed unless there is undue risk to the current or future health of a patient. After reviewing the aforementioned [facility] Public Order and the patient's clinical case, I have determined that the scheduled procedure meets the criteria to go forward. Risk to Patient if Procedure Delayed: Risk of rapidly worsening to severe symptoms if delayed - patient has a nonhealing ulcer left breast reconstruction with more exposure of her underlying breast implant that increases the risk of implant rupture.
[2019-09-03] VITALS (8 sets, daily range): BP systolic 91–115; BP diastolic 40–84; PULSE 50–82; RESP 16–17; TEMP 36–36.6; O2SAT 96–100; BMI 19.6
--- NOTE | 2019-09-03 | BRBX_PTH ---
PATIENT: HILDA VILLAVICENCIO LOC: [facility] [place] U#:[id number] AGE/SX: 53/F ROOM: RE09/03/[address]: Dr. Derek Lewis MD : [id number] BED: DIS: 09/03/2019 SPEC #: [id number] RECD: 09/03/19 13:33 STATUS: CHIDI REBethany #: [id number] DALE: 09/03/19 00:[address]: Derek Lewis DEPT: SURGICAL PATHOLOGY RECD BY: Tc Garsia ENTERED: 09/03/19 13:33 SP TYPE: BREAST BX OTHR DR: No Primary Care Phys Tissues: A - Left breast, NOS B - Right breast, NOS C - FOREIGN BODY Procedures: Surgery Specimen Level I Surgery Specimen Level IV HEADER OPERATION: Revision left breast with excisional debridement ulcer PRE-OP DIAGNOSIS: Right breast cancer; ER positive; nonhealing ulcer of left breast TISSUE SUBMITTED: A - Left breast tissue, B - Right breast tissue, C - Left breast implant MICROSCOPIC DIAGNOSIS A. Left breast tissue, biopsy: Skin and underlying soft tissue consistent with focal ulceration and associated acute and chronic inflammation. Focal granulomatous inflammation to polarizable material. B. Right breast tissue, biopsy: Skin and underlying soft tissue consistent with focal ulceration and associated acute and chronic inflammation. Focal granulomatous inflammation to polarizable material. C. Left breast implant, removal: Unremarkable implant (gross diagnosis only). AM:jose enrique 09/04/19 MICROSCOPIC DESCRIPTION Slides are reviewed. GROSS DESCRIPTION A - Received in fixative is one container labeled with the patient's name and designated debrided left breast tissue. The specimen consists of two pieces of wagner soft tissue that in aggregate measure 3 x 1.2 x 0.1 cm. Also present is a strip of skin measuring 6 x 0.2 x 0.1 cm. The entire specimen is submitted in one cassette. B - Received in fixative is one container labeled with the patient's name and designated debrided right breast tissue. The specimen consists of a piece of skin with underlying tissue measuring 2 x 0.5 x 0.4 cm. The specimen is bisected and submitted entirely in one cassette. C - Received in fixative is one container labeled with the patient's name and designated left breast implant. The specimen consists of an intact circular implant measuring 11 cm in diameter and 5 cm in depth. The inscription on center of implant shows Dian, [id number], [facility] 350 cc. The specimen is for gross identification only. / SJ:jose enrique 09/03/19 TC:5 CPT: 99164 x2, 87322
[2019-09-03 06:10] LABS: Hematocrit 37.6 % (37-47); Hemoglobin 12.3 g/dL (12.0-15.0); Mean Corp Hgb Conc 32.7 g/dL (32-36); Mean Corpuscular Hgb 31.3 pg (27.0-32.0); Mean Corpuscular Volume 95.7 fL (81-99); Mean Platelet Vol. 9.9 fl (6.2-12.0); Platelet Count 258 K/mm3 (150-450); RBC Distribution Width CV 12.5 % (11.6-14.6); Red Blood Count 3.93 M/mm3 (4.2-5.4); White Blood Count 5.9 K/mm3 (4.4-11.0)
[2019-09-03] MEDS: Lactated Ringers 1,000 ML 40 ML IV ×3 (06:10→09:30)
[2019-09-03] MEDS: Scopolamine 1mg/72hr Patch 1 PATCH TRANSDERM. (06:10)
[2019-09-03] MEDS: Acetaminophen 500 MG Tablet 1000 MG PO (06:10)
[2019-09-03] MEDS: Gabapentin 600 MG Tablet PO (06:11)
[2019-09-03 06:19] LABS: Partial Thromboplast Time 26.8 Seconds (24.1-36.2); Prothrombin Time (Protime)PT. 12.7 SECONDS (11.7-14.9)
[2019-09-03 06:33] LABS: Magnesium 2.1 mg/dL (1.6-2.6)
[2019-09-03] MEDS: Mupirocin Ointment 22gm Tube 1 APPLIC (09:57)
--- NOTE | 2019-09-03 09:59 | PCM.OPRPT ---
Report of Operation Date of Procedure: 09/03/19 Pre-Operative Diagnosis: 1. Right breast cancer. 2. Nonhealing ulcer left breast reconstruction. 3. Exposed breast implant left breast reconstruction. 4. Small nonhealing ulcer right breast reconstruction. 5. Cancer phobia left breast. 6. Acquired absence bilateral breasts. 7. Disproportion reconstructed breasts. 8. Estrogen receptor status positive. 9. Former smoker. Post-Operative Diagnosis: Same. Surgery/Procedure Performed:: 1. Surgical preparation left breast reconstruction with excisional debridement nonhealing ulcer with removal exposed implant and replacement cohesive gel implant (350 ml) and complex secondary wound closure. 2. Revision right breast reconstruction with excisional debridement nonhealing ulcer and complex secondary wound closure. Description of Surgical Findings:: 53 year old woman initially presented for evaluation for breast reconstruction after a recent diagnosis of right breast cancer from a biopsy on 10/11/18. Pathology showed invasive ductal carcinoma. ER was positive. MA was positive. HER2/gurpreet was equivocal for overexpression. Her initial mammogram and ultrasound were done on 09/30/18 and suspicious for carcinoma. Because of her fear of developing in the left breast a prophylactic mastectomy was discussed at the time of the mastectomy. On 10/24/18 the patient went to surgery where she underwent injection of 5 cc of Lymphazurin blue and right-sided mastectomy and right-sided sentinel lymph node biopsy by Dr. Michelle and prophylactic mastectomy left breast and immediate bilateral breast reconstruction with placement of submuscular saline tissue expanders (350 ml) and placement Alloderm Select Regenerative Tissue Matrix Graft (132 cm2 for each side) by Dr. Lewis. She did well initially. When we started the saline tissue expansion, she developed some incisional breakdown on the right with exposure of the aviation operations specialist. She returned to the operating room on 12/09/18 where she underwent surgical preparation right breast reconstruction with excisional debridement nonhealing infected wound and complex secondary wound closure and revision right breast reconstruction with excision acellular dermal matrix graft and removal of exposed infected saline tissue aviation operations specialist. Postop healing has been uneventful. On 02/03/19 she continued the breast reconstruction process with delayed right breast reconstruction with placement of submuscular saline tissue aviation operations specialist (350 ml) and injected 50 ml saline into left breast reconstruction tissue aviation operations specialist, (250 ml in a 350 ml aviation operations specialist). Postop healing was uneventful. On 05/08/19 she continued the breast reconstruction process with revision left breast reconstruction with excision excess mastectomy skin scar contour deformitymand delayed left breast reconstruction with removal of saline tissue aviation operations specialist and multiple capsulotomies with replacement cohesive gel implant (350 ml) and placement of Alloderm Select Restore regenerative tissue matrix graft (327 cm2) and revision right breast reconstruction with excision excess mastectomy skin scar contour deformity and delayed right breast reconstruction with removal of saline tissue aviation operations specialist and multiple capsulotomies with replacement cohesive gel implant (350 ml) and placement of Alloderm Select Restore regenerative tissue matrix graft (327 cm2) and intradermal excision 5 mm erythematous nodular lesion left medial chest wall. She did well initially and then developed some wound separation on the left breast reconstruction with exposure of the Alloderm. Over time the Alloderm and exposure of the implant was seen. There is also a small incisional separation on the right breast reconstruction with a small amount of exposed Alloderm and no implant exposure seen. It was recommended to the patient to proceed with debridement of the nonhealing ulcer left breast reconstruction with removal of the exposed implant with replacement implant and also debride the small separation on the right breast reconstruction including the small amount of exposed Alloderm with secondary wound closure. Patient was informed of the risks and complications of the procedure including alternatives to surgery. These were discussed with the patient personally. Patient voices understanding and wishes to proceed. Some of the risks and complications were included in a form from the [employer]. I used Willcox MemoryGel Smooth Round High Profile Breast Implant, 350 ml, on the left. Reference Number - [id number]. Lot Number - [id number]. Serial Number - [id number]. Expiration - May 20, 2024. I used AmnioFill Placental Connective Tissue Powder, 250 mg, on the left. Catalog Number - [id number]. Lot Number - [id number]. Expiration - May 16, 2024. I used Vishal absorbable hemostat on the left. Reference Number - [id number]. Lot Number - [id number]. Expiration - December 14, 2023. manager qa: Eran Alvarez. Type of Anesthesia:: General Specimen's removed: 1. Left breast tissue to Pathology and Microbiology. 2. Right breast tissue to Pathology and Microbiology. 3. Left breast implant to Pathology. Drains: Cameron on the left. Estimated Blood Loss (mL): 20 ml. Description of Procedure: Patient was taken to OR in supine position and was placed under general anesthesia. The breasts were prepped and draped in the usual fashion. SCD's were placed for DVT prophylaxis. Perioperative antibiotics were given intravenously. I performed the surgery with an N95 mask and proper eye protection. Using xylocaine with epinephrine, the ulcerations were infiltrated. After waiting 5 minutes for the anesthetic to take effect, I excised the nonhealing ulcer left breast reconstruction including the exposed acellular dermal matrix graft. I extended the incision a few cm on either side of the ulcer to aid in exposure and wound closure. I removed the cohesive gel implant as it was exposed. There were no problems in the breast pocket. No abnormal fluid seen. The breast implant that was removed was 350 ml Ultra High Profile. It was grossly intact. Ultra High Profile implants have more of a projection as compared to other Profile implants. I initially placed a 320 ml Ultra High Sizer into the breast pocket. I sutured the incision with 3-0 Vicryl simple running suture. I sat the patient up and there was not too much tension on the incision. However there was noticeable difference in the superior pole. Therefore I decided to try a High Profile Sizer which has less projection and therefore should not put undue tension on the incision. I went ahead with the 350 ml High Profile Sizer and placed it into the breast pocket. I sutured the incision with 3-0 Vicryl simple running suture. I sat the patient up and there was not too much tension on the incision. And the superior pole showed symmetrical fullness bilaterally. So I decided on the 350 ml High Profile implant. A size 15 Cameron drain was placed through a separate stab incision laterally and secured to the skin with 3-0 Nylon suture. I irrigated the left breast pocket with 0.05% Irrisept chlorhexidine solution. This was followed with saline irrigation. Hemostasis was obtained with electrocautery. I sprayed Vishal absorbable hemostat into the breast pocket to minimize seroma formation. Before placing the implant into the left breast pocket, I changed my gloves. The 350 High Profile Willcox MemoryGel breast implant was placed in Betadine. It was then placed in the left breast pocket without difficulty. I reapproximated the acellular dermal matrix graft with 3-0 Vicryl interrupted sutures at the edges. I placed a pickups underneath the area of suture placement to prevent injury to the underlying implant. There was a biologic graft defect of 4 x 1.5 cm. I noticed when the implant was initially removed, there was redundant acellular dermal matrix graft on the chest wall. A section of it was excised and was used to reconstruct the biologic graft defect. The extra piece of acellular dermal matrix graft was approximated to the biologic graft defect with 3-0 Vicryl interrupted sutures. I placed a pickups underneath the area of suture placement to prevent injury to the underlying implant. Before closing the dermis and skin on the left, I sprayed AmnioFill placental connective tissue powder to aid in wound healing. I proceeded with closure of the dermis with 3-0 Monocryl interrupted sutures. The skin was approximated with 4-0 Prolene vertical mattress sutures and simple interrupted sutures. No vascular compromise was noted in the area of the skin closure. The breast was soft and not under too much tension with the placement of the implant. Tissue that was excised and debrided was sent to Pathology for analysis to rule out carcinoma and to Microbiology for culture. A positive culture will necessitate antibiotic therapy. I also excised the nonhealing ulcer right breast reconstruction including a small portion of exposed acellular dermal matrix graft. No implant was exposed on the right. I was able to approximate the small defect in the acellular dermal matrix graft with 3-0 Vicryl simple interrupted sutures. I used 2 sutures. I placed a pickups underneath the area of suture placement to prevent injury to the underlying implant. The dermis was then closed with 3-0 Monocryl interrupted sutures. The skin was approximated with 4-0 Prolene vertical mattress and simple interrupted sutures. Tissue that was excised and debrided was sent to Pathology for analysis to rule out carcinoma and to Microbiology for culture. A positive culture will necessitate antibiotic therapy. Antibiotic ointment was applied to the suture lines bilateral breasts followed by Kerlix gauze and a compression HECTOR wrap. Patient tolerated the procedure well and was sent to PACU in satisfactory condition. Patient will be sent home on antibiotics and pain medication. She will keep her head elevated during the initial postoperative period and will maintain her lifting restriction. Patient will followup in a week for a wound check and for discussion of the pathology report and for discussion of the microbiology report. A positive culture will necessitate antibiotic therapy. The sutures will be removed in 2 weeks. Grafts/Implants Used: Willcox MemoryGel Implant, AmnioFill Placental Connective Tissue Powder. - Complications None. - Admit VTE Documentation VTE Present on Admission: No VTE Mechan Device Prophylaxis: SCD's VTE Pharm Prophylaxis ordered?: No Surgery Charges CPT - 61866 ICD-10 - C50.911, N61.1, Z98.82, Z90.13, N65.1, Z17.0, Z87.891 65914 C50.911, N61.1, T85.49xA, F40.298, Z98.82, Z90.13, N65.1, Z17.0, Z87.891 [id number] C50.911, N61.1, T85.49xA, F40.298, Z98.82, Z90.13, N65.1, Z17.0, Z87.891 10827 C50.911, N61.1, T85.49xA, F40.298, Z98.82, Z90.13, N65.1, Z17.0, Z87.891
--- NOTE | 2019-09-03 10:18 | DCINST_ITS ---
You will use the following diet at home:: No restrictions, Other - encourage nutritional supplementation with protein to help the healing process. Discharge Activity: May not drive while taking narcotic pain medications., May Shower - after the drain is removed., - - no heavy lifting. keep head elevated. May shower in (days): 10 - after the drain is removed. May resume sexual activity in: No Restrictions Weight Bearing Status: Weight bearing as tolerated Lifting Restrictions: 20 lbs. Keep extremity elevated above heart level: - - elevate head. Call your doctor if your incision/area has: Continuous Slow Oozing, Sudden Increased Bleeding, Increased Pain/ Swelling, Increased Redness, Foul Smelling Discharge, Swelling at the incision site Call your doctor if you observe: Fever of 101 or Higher, Coldness, Increased Pain, Shortness of breath, Chest pain, Calf discomfort, Uncontrolled pain Suture Line Care: - - apply antibiotic ointment to suture line daily after operative dressing removed in two days. Change Dressing in (Days):: 2 - apply antibiotic ointment to suture lines after the operative dressing removed in two days. Cleanse incision/area with: - - may get incision wet in the shower after the drain is removed. Drain: Suction - amita drain to bulb suction. empty and record output daily. Allergies/Adverse Reactions: Allergies tetracycline Adverse Reaction (Mild, Verified 09/03/19 05:46) GI Upset cefadroxil [From Duricef] Adverse Reaction (Verified 09/03/19 05:46) gi upset METALS Allergy (Severe, Uncoded 09/03/19 05:46) METALS WITH EXCEPTION OF TITANIUM DETERIORATE levaquin Adverse Reaction (Intermediate, Uncoded 09/03/19 05:46) upset stomach Medications to take at Discharge Calcium (Elemental) [Os-Jose Manuel 500] 500 mg PO DAILY 12/08/18 Cholecalciferol (Vitamin D3) [Vitamin D3] 2,000 unit PO BID 01/29/19 anastrozole 1 mg tablet 1 mg PO QHS 03/12/19 Leuprolide Acetate [Lupron Depot (Lupaneta)] 11.25 mg IM QMONTH 05/01/19 Ferrous Sulfate 325 mg PO DAILY@0800 08/31/19 Amoxicillin/Potassium Clav [Amox-Clav 500-125 mg Tablet] 1 ea PO BID #20 tab 09/03/19 Oxycodone HCl/Acetaminophen [Percocet 5/325] 1 tab PO Q6H PRN PRN 7 Days #28 tab 09/03/19 The following prescriptions were given: Amoxicillin/Potassium Clav [Amox-Clav 500-125 mg Tablet] 1 ea PO BID #20 tab Transmission Status: Received by [facility] Oxycodone HCl/Acetaminophen [Percocet 5/325] 1 tab PO Q6H PRN PRN 7 Days #28 tab PRN Reason: Pain Score 4-5/10 Transmission Status: Received by [facility] Primary Care Physician: Care Physician,No Primary [Primary Care Provider] - Test Results: Test results from this visit will be discussed in further detail at your follow- up appointment, if applicable. Please Follow Up With: Derek Lewis MD When: one week. call [phone] for appt. Proposed Discharge Date: 09/03/19
[2019-09-03 10:51] LABS: Bedside Glucose 93 mg/dL (70-110)
== END 2019-09-03 12:36 | disposition home or self-care (01) ==
LOC: SDC 05:40 → AC 05:41
PROVIDERS: Anesthesiology; Referring Provider Surgery; Visit Provider Surgery
PROC: (CPT 19380; principal; 2019-09-03 07:10)
DX: T85.49XA Other mechanical complication of breast prosthesis and implant, initial encounter (principal); C50.911 Malignant neoplasm of unspecified site of right female breast; F40.298 Other specified phobia; Z98.82 Breast implant status; Z90.13 Acquired absence of bilateral breasts and nipples; N65.1 Disproportion of reconstructed breast; Z17.0 Estrogen receptor positive status [ER+]; D64.9 Anemia, unspecified; Z79.899 Other long term (current) drug therapy; Z87.891 Personal history of nicotine dependence
CPT/HCPCS: 00402; 19380; 82962; 83735; 85027; 85610; 85730; 87070; 87075; 87102; 87205; 87206; 87635; 88300; 88305; G2023; J7120; J0295; J2405; Q9968; U0003